=== PATIENT | male | born 1955 | race Caucasian/White ===

== ENCOUNTER → 2022-09-25 | Outpatient (CLI) | payer OTHER, SELFPAY ==
--- NOTE | 2022-09-25 12:45 | RAD_ITS ---
INDICATION: LEFT KNEE CATCHING -- STANDING EXAMINATION/TECHNIQUE: X-RAY - LEFT XR Knee Complete 4 Views or More 4 VIEWS COMPARISON: None. FINDINGS: SOFT TISSUES: No soft tissue swelling or gas. No radiopaque foreign body. BONES/JOINTS: No acute fracture. Mild tricompartmental degenerative changes. No sclerotic or destructive changes observed. RAD/Knee 4 or More Views IMPRESSION: Mild tricompartmental degenerative changes. Electronically Signed: Torito Sanches MD at 17:51 EST ,
--- NOTE | 2022-09-25 12:45 | RAD_ITS ---
STUDY: X-RAY CHEST REASON FOR EXAM: Male, 67 years old. Smoking history. TECHNIQUE: PA and lateral views of the chest. COMPARISON: February 12, 2013. FINDINGS: The lungs are clear and expanded. There is no demonstrated pleural abnormality. Normal size heart. Normal mediastinum and shelbie. Normal visualized pulmonary arteries. Normal visualized aortic arch and descending thoracic aorta. There are diffuse degenerative changes of the visualized thoracic spine. Normal visualized ribs, clavicles, and shoulders. There is no demonstrated abnormality of the visualized soft tissue structures of the upper abdomen. RAD/Chest PA and Lateral IMPRESSION: Degenerative changes, as described above. No demonstrated acute cardiopulmonary process. No major interval change. Electronically Signed: Wali Quinn DO at 17:30 EST ,
[2022-09-25 13:28] LABS: Absolute Lymphocyte Count 2.05 X10^3/uL (0.83-4.51); Absolute Neutrophil Count 9.1 X10^3/uL (2.0-7.7); Basophil# 0.03 X10^3/uL; Basophil% 0.2 % (0-1); Eosinophil# 0.14 X10^3/uL; Eosinophils% 1.1 % (0-5); Hematocrit 49.5 % (40-54); Hemoglobin 16.2 g/dL (13.0-16.5); Lymphocyte # 2.05 X10^3/ul (0.83-4.51); Lymphocyte % 16.8 % (19-41); Mean Corp Hgb Conc 32.7 g/dL (32-36); Mean Corpuscular Hgb 29.6 pg (27.0-32.0); Mean Corpuscular Volume 90.5 fL (80-94); Mean Platelet Vol. 9.2 fl (6.2-12.0); Monocyte# 0.86 X10^3/uL; Monocyte% 7.1 % (0-10); NRBC Flagged by Analyzer 0 % (0-5); Neutrophil # 9.08 X10^3/uL (2.7-7.7); Neutrophil % 74.6 % (47-70); Platelet Count 285 K/mm3 (150-450); RBC Distribution Width CV 13.3 % (11.6-14.6); RBC Distribution Width SD 43.8 fl (35.1-43.9); Red Blood Count 5.47 M/mm3 (4.6-6.2); White Blood Count 12.2 K/mm3 (4.4-11.0)
[2022-09-25 13:58] LABS: ALB/GLOB Ratio 0.9 RATIO (0.9-2.4); AST(SGOT) 18 U/L (15-37); Alanine Aminotransfer ALT/SGPT 24 U/L (16-61); Albumin, Serum 3.4 g/dL (3.2-5.0); Alkaline Phosphatase 93 U/L (45-117); Anion Gap 3 (5-15); BUN 14 mg/dL (7-18); Calcium,Total 8.7 mg/dL (8.5-10.1); Chloride 107 mmol/L (98-107); Cholesterol 180 mg/dL (200); Creatinine, Serum 1.08 mg/dL (0.70-1.30); EST Glomerular Filtration Rate 73 mL/min (>60); Est Glom Filt Rate - Afr Amer 88 mL/min (>60); Globulin 3.9 g/dL (2.2-4.2); Glucose 98 mg/dL (74-106); High Density Lipoprotein 56 mg/dL; PSA,Total - Annual Screen 0.73 ng/mL (0.00-4.00); Potassium 4.7 mmol/L (3.5-5.1); Protein, Total 7.3 g/dL (6.4-8.2); Sodium Level 140 mmol/L (136-145); Triglycerides 81 mg/dL; Very Low Density Lipoprotein 16 mg/dL (5-40)
== END | disposition home or self-care (01) ==
LOC: LAB 12:24
PROVIDERS: PCP Family Medicine; Referring Provider Family Medicine; Visit Provider Family Medicine
DX: Z00.00 Encounter for general adult medical examination without abnormal findings (principal); F17.200 Nicotine dependence, unspecified, uncomplicated; R06.00 Dyspnea, unspecified; Z12.5 Encounter for screening for malignant neoplasm of prostate; M25.562 Pain in left knee
CPT/HCPCS: 36415; 71046; 73564; 80053; 80061; 84153; 85025; G0103

== ENCOUNTER → 2024-03-20 | Outpatient (CLI) | payer OTHER, SELFPAY ==
--- NOTE | 2024-03-20 16:10 | CT_ITS ---
STUDY: CT ABDOMEN AND PELVIS WITHOUT CONTRAST REASON FOR EXAM: Male, 68 years old. ABDOMINAL PAIN RADIATION DOSAGE (If Supplied By Facility): CTDIvol = ( 7.13 ) mGy, DLP = ( 354.70 ) mGycm TECHNIQUE: Transaxial images were obtained from the dome of the diaphragm to the symphysis pubis without oral contrast, and without intravenous contrast. Sagittal and coronal images were reconstructed. Individualized dose optimization techniques were used for this CT. COMPARISON: None. FINDINGS: The visualized lung bases are unremarkable. Coronary artery calcification. There is a 6.7 mm cyst in the lateral aspect of the left lobe of the liver. Normal gallbladder and extrahepatic biliary system. Normal spleen. Normal pancreas. Normal bilateral adrenal glands. Normal right kidney. Normal left kidney. Normal visualized stomach. Normal small intestine. There are scattered colonic diverticula consistent with diverticulosis. The appendix is visualized and appears normal. There is scattered atherosclerotic calcification of the abdominal aorta, without a demonstrated aneurysm. Normal inferior vena cava. There is a small retroperitoneal lymphadenopathy with enlarged nodes no greater than 10mm in the short axis diameter. 2 tiny calculi are seen at the base of the bladder on the right side. This may represent recently passed calculus. Diffuse bladder wall thickening. Questionable polypoid lesion in the base of the bladder more prominent on the right side. A repeat examination following IV contrast recommended. There are prostatic calcifications. Small bilateral inguinal hernias containing fat. There are diffuse degenerative changes of the visualized lumbar spine. Grade 1 anterolisthesis of L4 on L5 most likely secondary to facet joint osteoarthritis. CT/Abdomen/Pelvis without Cont IMPRESSION: Diffuse urinary bladder wall thickening. Questionable polypoid lesion at the base of the bladder more prominent on the right side. 2 tiny calculi are seen at the base of the bladder on the right side suggests a recently passed calculus. Clinical correlation recommended. Sigmoid diverticulosis. Electronically Signed: Chico Blakely MD at 15:54 EDT ,
== END | disposition home or self-care (01) ==
LOC: CT 16:06
PROVIDERS: PCP Family Medicine; Referring Provider Family Medicine; Visit Provider Family Medicine
DX: R10.9 Unspecified abdominal pain (principal); R31.29 Other microscopic hematuria
CPT/HCPCS: 74176

== ENCOUNTER 2024-04-16 17:29 | Emergency (ER) | payer OTHER, SELFPAY ==
[2024-04-16 17:31] VITALS: BP 155/134; PULSE 90; RESP 18; TEMP 36.7; O2SAT 100; O2SAT 98; BMI 25.6
[2024-04-16 17:35] VITALS: O2SAT 96
--- NOTE | 2024-04-16 17:39 | CT_ITS ---
EXAM: CT HEAD WITHOUT INTRAVENOUS CONTRAST CLINICAL INDICATION: head trauma w/ loc TECHNIQUE: Multiple axial images were obtained of the head without intravenous contrast. This CT exam was performed using one or more of the following dose reduction techniques: automated exposure control, adjustment of the mA and/or kV according to patient size, and/or use of iterative reconstruction technique. RADIATION DOSE: CTDIvol = 44.99 mGy, DLP = 829.85 mGy-cm COMPARISON: 02/12/2013 FINDINGS: BRAIN AND EXTRA-AXIAL SPACES: Unremarkable. No intra- or extra-axial hemorrhage. No evidence of acute infarct. No intracranial mass or mass effect. There is preservation of the allan/white matter interface. Posterior fossa structures are unremarkable. Ventricles are appropriate for age. No hydrocephalus. Basal cisterns are patent. BONES/JOINTS: Unremarkable. No discrete lytic or blastic abnormalities. SINUSES: Sinus disease. MASTOID AIR CELLS: Unremarkable. Clear. ORBITS: Visualized globes, extraocular muscles, optic nerves and retrobulbar fat appear unremarkable. CT/Brain/Head without Contrast IMPRESSION: No acute findings in the head/brain. Electronically Signed: Arvind Davis MD at 18:53 EDT ,
--- NOTE | 2024-04-16 17:40 | EKG12_ITS ---
Test Reason : SYNCOPE Blood Pressure : / mmHG Vent. Rate : 095 BPM Atrial Rate : 095 BPM P-R Int : 134 ms QRS Dur : 080 ms QT Int : 366 ms P-R-T Axes : 074 083 046 degrees QTc Int : 459 ms Normal sinus rhythm Nonspecific ST abnormality Abnormal ECG Confirmed by TOM SHERMAN, ELVIA ([id number]), department editor ANGELITO MAY ([id number]) on 04/21/2024 6:49:53 AM Referred By: MARCELLUS/MOUNA Confirmed By:TATYANA SANTOS MD
--- NOTE | 2024-04-16 17:43 | EX.ED.DYSGE1 ---
HPI History of Present Illness Chief Complaint: Allergic Reaction Informant: patient and spouse/S.O. Onset/Context/Timing Onset: Today Context: Sudden Onset Timing: Continuous Current Severity: Moderate Maximum Severity: Severe Narrative Narrative: 68-year-old male. Was cutting his grass when he was attacked by multiple bees and multiple bee stings on both legs. Developed anaphylactic reaction had a syncopal episode he fell back hit his head on his garage floor. When he came to he was feeling somewhat better sat back up and then passed out again and fell back in his head. 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 He is currently on no medications. He was brought in by squad he was treated with IV Solu-Medrol, EpiPen and IV Benadryl. He is feeling much better. Prior to the bee sting incident he was feeling fine. He has had no recent illness. No cardiac history. Prior similar symptoms: No Recent Illness/Hospitalization: No PFSH PFSH Medical History Wears dentures Cancer Bladder disease Heartburn Former smoker Home Medications ?Medication ?Instructions ?Recorded ?Last Taken ?Type aspirin 81 mg tablet,delayed 81 mg PO DAILY 04/14/24 04/11/24 History release (Adult Aspirin Regimen) epinephrine 0.3 mg/0.3 mL 0.3 mg (0.3 mL) IM Q4H PRN 04/16/24 Unknown Rx injection, auto-injector (EpiPen anaphylaxis #2 ea 2-Boubacar) Allergy/AdvReac Type Severity Reaction Status Date / Time bee venom protein (honey Allergy Anaphylaxis Verified 04/16/24 17:39 bee) (bee sting) Surgical History History of colonoscopy History of removal of skin mole History of mandibular surgery Social History Smoking Status: Former smoker ROS ROS ED ROS Narrative Denies recent illness. Constitutional Constitutional ED: Denies fever(s) Eyes Eyes: Denies blurry vision ENT ENT ED: Denies ear pain Cardiovascular Cardiovascular: Denies chest pain Respiratory/Chest Respiratory/Chest: Denies cough or dyspnea Gastrointestinal Gastrointestinal: Denies abdominal pain, constipation, diarrhea, melena, nausea or vomiting Genitourinary Genitourinary ED: Denies dysuria or hematuria Musculoskeletal Musculoskeletal: Denies arthralgias Integumentary Denies abscess Neurologic Neurologic: Denies headache(s) Psychiatric Psychiatric: Denies anxiety or depression Endocrine Endocrinology: Denies cold intolerance Hematologic/Lymphatic Hematologic/Lymphatic: Reports none Allergic/Immunologic Allergic/Immunologic ED: Denies mouth swelling, tongue swelling or urticaria EXAM Physical Exam Narrative Exam Narrative: 68-year-old male initial blood pressure 155/134 and most likely from the epinephrine. Pulse ox 90% on room air no hypoxia. Afebrile. He does not look septic or toxic. He is diaphoretic. H EENT exam pupils round react light. Extra motions are intact. No facial trauma. He hit his head twice saddles any hematoma or laceration is nontender. Neck nontender. Trachea midline. Back spine nontender. No signs of trauma. Lungs clear to auscultation bilaterally. Heart regular rhythm rate about 90 no murmur. Chest wall and ribs nontender. Abdomen soft nontender. He is moving all 4 extremities. 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 Normal range of motion. Currently there is no hives or allergic reaction on his legs. But he is already been given epinephrine, Benad[facility] He is awake and alert. He is answering questions and following commands. Const Vital Signs: 04/16/24 17:31 04/16/24 17:35 04/16/24 18:31 Temperature 98.0 F Temperature Source Oral Pulse Rate 90 101 H Respiratory Rate 18 20 H Respiratory Effort Normal Respiratory Depth Normal Respiratory Pattern Normal Blood Pressure 155/134 H 137/66 H Blood Pressure Mean 141 89 Pulse Ox 98 96 97 Oxygen Delivery Method Room Air Room Air Room Air Positive well nourished and well developed; Negative for obese, cachectic, contractures or unkempt General Appearance ED: well developed; Negative for unkempt, cachectic, contractures, cyanotic, diaphoretic or pallor Nutritional Appearance: Negative for cachectic or obese HEENT Reports moist mucous membranes trauma; Negative for tenderness Eyes PERRL and EOMs intact bilaterally General Eye ED: Negative for pale conjunctiva or scleral icterus Neck no lymphadenopathy, supple and no JVD General: Negative for tenderness or other Lymph Lymphatic: Negative for other Chest Wall inspection of chest normal and palpation of chest normal Resp normal respiratory effort and clear to auscultation bilaterally Effort and Inspection: Negative for retractions or pain with movement Auscultation: Negative for rales, rhonchi, wheezes or diminished lung sounds Cardio regular rate, regular rhythm, S1 normal heart sound, S2 normal heart sound and no murmurs Palpation: Negative for palpable S3 or palpable S4 Rate: Negative for bradycardia, tachycardic or other Rhythm: Negative for abnormal rhythm GI normal to inspection, nondistended, normoactive bowel sounds, non-tender, non-distended and no masses Inspection: Negative for abdominal distention Auscultation: normoactive bowel sounds Palpation: soft; Negative for tender or guarding Back/Spine no CVA tenderness General Back: Negative for CVA tenderness Cervical Spine: Negative for cervical spine tenderness Thoracic Spine / Upper Back: Negative for thoracic spinal tenderness or paraspinal muscle tenderness Lumbar Spine / Lower Back: Negative for lumbar spinal tenderness Extremity normal to inspection General Extremety ED: Negative for edema or tenderness General Extremity: Negative for edema Neuro oriented x3 and CN's II-XII intact bilaterally Sensorium / Orientation: alert; Negative for orientation impaired, lethargic or stuporous Motor Exam: strength 5/5 throughout Psych mental status grossly normal Appearance: Negative for unkempt Attitude: No agitated Mood & Affect: Negative for depressed, anxious or tearful Skin no rashes or lesions noted, no wounds and skin turgor normal General Skin Exam: Negative for jaundice or pallor Lesions: No lesion noted Rashes: No rashes noted Wounds: Negative for wounds noted MDM MDM MDM Narrative Medical decision making narrative: 68-year-old male anaphylactic reaction to multiple bee stings. Pretreated by squad prior to arrival with EpiPen, Solu-Medrol and Benadryl IV. He is much improved. He did have head injury when he passed out out of the hypotension anaphylaxis so I will be obtain a CAT scan of his head. We did get an EKG because of syncope Meding is all secondary to anaphylaxis. I do not believe he needs any lab work he is had no recent illness. Repeat exam patient is doing well at 7:20 PM. Nurses getting him ambulating loculating difficulty. CAT scan of his brain was unremarkable. He will be discharged to home. With an EpiPen. History & Record Review Discussion w/independent historian: Patient and Family Lab Data Attestation: I reviewed the patient's lab results. Lab results narrative: BGT 123. Labs: Laboratory Results - last 24 hr 04/16/24 17:34 POC Glucose 123 H Radiography Diagnostic Testing: Clinical Impression(s) from Imaging Studies Brain CT 04/16/24 17:39 IMPRESSION: No acute findings in the head/brain. Electronically Signed: Arvind Davis MD at 18:53 EDT Reading Location ID and State: [facility] / [place] , Service support , Rhythm Strip Rhythm Strip: Sinus Rhythm Rate: 95 Ectopy: None EKG Initial EKG: Attestation: I personally reviewed and interpreted this EKG as follows: Interpretation: Sinus Rhythm and No Acute Injury Pattern Comments: Normal sinus rhythm rate of 95 no signs of NC or ischemia. No dysrhythmia. Discharge Plan Triage Chief Complaint: Allergic Reaction Other Complaint: Head Injury ED Provider: Serafin Bowen Dx/Rx/DC Orders Clinical Impression: Anaphylactic reaction, Allergy to bee sting, Head injury Instructions: ED Anaphylaxis, ED Head Injury (Adult) Prescriptions: New epinephrine [EpiPen 2-Boubacar] 0.3 mg/0.3 mL auto-injector 0.3 mg IM Q4H PRN (Reason: anaphylaxis) Qty: 2 0RF Rx Instructions: If you ever have a severe allergic reaction again. No Action aspirin [Adult Aspirin Regimen] 81 mg tablet,delayed release (DR/EC) 81 mg PO DAILY Primary Care Provider: Rohan Amezcua Referrals: Rohan Amezcua DO [Primary Care Provider] - As Needed Activity Restrictions/Additional Instructions: Severe allergic reaction, anaphylaxis, to bee sting. If you were to have a similar type of reaction in the future you need to have an EpiPen at your home and in your car at all times. Closed head injury. Print Language: Italian Disposition Disposition: Home, Self Care
[2024-04-16 17:51] LABS: Bedside Glucose 123 mg/dL (74-106)
[2024-04-16 18:31] VITALS: BP 137/66; PULSE 101; RESP 20; O2SAT 97
[2024-04-16 19:00] VITALS: BP 135/61; O2SAT 98
[2024-04-16 19:34] VITALS: BP 135/61; PULSE 102; RESP 21; TEMP 36.6; O2SAT 98
== END 2024-04-16 19:35 | disposition home or self-care (01) ==
PROVIDERS: Emergency Provider Emergency Medicine; PCP Family Medicine; Visit Provider Emergency Medicine
DX: S09.90XA Unspecified injury of head, initial encounter (principal); T78.2XXA Anaphylactic shock, unspecified, initial encounter; Z87.891 Personal history of nicotine dependence; T63.441A Toxic effect of venom of bees, accidental (unintentional), initial encounter
CPT/HCPCS: 70450; 82962; 93005; 99285

== ENCOUNTER 2024-05-12 09:13 | Day surgery (SDC) | payer OTHER, SELFPAY ==
[2024-05-12] VITALS (8 sets, daily range): BP systolic 145–169; BP diastolic 75–112; PULSE 77–85; RESP 16; TEMP 36.1–36.6; O2SAT 81–99; BMI 26.1
--- NOTE | 2024-05-12 09:33 | EKG12_ITS ---
Test Reason : PRE OP Blood Pressure : / mmHG Vent. Rate : 070 BPM Atrial Rate : 070 BPM P-R Int : 154 ms QRS Dur : 084 ms QT Int : 356 ms P-R-T Axes : 067 072 012 degrees QTc Int : 384 ms Normal sinus rhythm Normal ECG Confirmed by Ilya Ramirez ([id number]), pictures editor GRETTA BLACKMON ([id number]) on 05/15/2024 10:52:44 AM Referred By: Gordo Roe Confirmed By:Ilya Ramirez
--- NOTE | 2024-05-12 09:38 | PRE.ANES_ITS ---
ASA Classification* ASA Classification ASA Classification: 2 Assessment & Plan Anesthesia* Anesthesia Assessment Anesthesia Assessment: Discussed sedation and/or anesthesia options, risks, benefits, and alternatives with patient/parents/legal guardian/POA. Questions invited. The patient/parents/legal guardian/POA seems to understand and agrees to proceed with anesthesia plan. Reviewed the physical assessment, medical history, allergy history and patient home medications list prior to surgery/procedure/anesthetic and documented any changes. Performed airway and anesthesia risk assessments. Anesthesia Type Anesthesia Type: General Anesthesia Focused Assessment* Airway Assessment Mouth opens: >3 cm Mallampati Score: II Focused Labs Anesthesia Preop lab: CBC WBC 12.2 K/mm3 (4.4-11.0) H 09/25/22 12:28 RBC 5.47 M/mm3 (4.6-6.2) 09/25/22 12:28 Hgb 16.2 g/dL (13.0-16.5) 09/25/22 12:28 Hct 49.5 % (40-54) 09/25/22 12:28 Plt Count 285 K/mm3 (150-450) 09/25/22 12:28 CHEMISTRY Potassium 4.7 mmol/L (3.5-5.1) 09/25/22 12:28 Sodium 140 mmol/L (136-145) 09/25/22 12:28 BUN 14 mg/dL (7-18) 09/25/22 12:28 Creatinine 1.08 mg/dL (0.70-1.30) 09/25/22 12:28 Glucose 98 mg/dL (74-106) 09/25/22 12:28 POC Glucose 123 mg/dL (74-106) H 04/16/24 17:34 COAG Pre-Assessment Diagnosis/Proposed Procedure Planned Operative Procedure(s): Cysto,Transurethal Resec Bladder,[employer] Anesthesia History 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 When Was Last Pacemaker Check QUESTION #4 FULL TEXT: You/Your Family Experience fever (hyperthermia) with Anesthesia Last Oral Intake Last Oral intake: Last Oral Intake NPO since Meds taken in AM with sips of water? 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 Female No 04/14/24 10:54 HX of Motion Sickness No 04/14/24 10:54 HX of N/V After Surgery No 04/14/24 10:54 Non-Smoker Yes 04/14/24 10:54 Duration of Surgery greater Yes 04/14/24 10:54 than 60 minutes Number of Risk Factors 2 04/14/24 10:54 PONV Score Moderate Risk 04/14/24 10:54 Height & Weight Height & Weight: Anesthesia: Height & Weight Height 5 ft 8 in 05/11/24 09:33 Weight: 74.843 kg 05/11/24 09:33 Respiratory Assessment Respiratory Assessment - roll grinder operator: Respiratory Tract Infection Hx - roll grinder operator Hx Respiratory Tract Infection No 04/14/24 10:54 STOP Sleep Apnea STOP Sleep Apnea - roll grinder operator: STOP Sleep Apnea - roll grinder operator Hx Hypertension No 04/14/24 10:54 Hx Sleep Apnea No 04/14/24 10:54 CPAP BIPAP Do you snore loudly (louder Yes 04/14/24 10:54 than talking or can be heard Do you often feel tired/ No 04/14/24 10:54 fatigued/ sleepy during daytime? Has anyone observed you stop No 04/14/24 10:54 breathing during sleep? STOP Results Negative 04/14/24 10:54 QUESTION #5 FULL TEXT : Do you snore loudly (louder than talking or can be heard through closed doors)? 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 Specify any problems Hx of Preganancy in last 3 N/A 04/14/24 10:54 Months Nurse Filling Out Transfusion NBUCHER 04/14/24 10:54 & Questions: Date: 04/14/24 04/14/24 10:54 Time: 10:55 04/14/24 10:54 Patient unable to answer at this time (ie. confused, unrespo /Reproduction History /Reproductive History - roll grinder operator: /Reproductive Hx- roll grinder operator Hx Now No 04/14/24 10:54 Gestational Age (in weeks): EDC: Hx Hx Para Hx Section SAB No 04/14/24 10:54 Active Medications Active Medications: Current Medications Generic Name Dose Route Start Last Admin Trade Name Freq PRN Reason Stop Dose Admin Cefazolin Sodium 2 gm/ Sodium 110 mls @ 150 mls/hr 05/12/24 12:50 Chloride IV 05/12/24 13:33 PREOP ONE Lactated Ringer's 1,000 mls @ 15 mls/hr 05/12/24 09:30 IV .Q48H JO PFSH Medical History Wears dentures Cancer Bladder disease Heartburn Former smoker Home Medications ?Medication ?Instructions ?Recorded ?Last Taken ?Type aspirin 81 mg tablet,delayed 81 mg PO DAILY 04/14/24 04/11/24 History release (Adult Aspirin Regimen) epinephrine 0.3 mg/0.3 mL 0.3 mg (0.3 mL) IM Q4H PRN 04/16/24 Unknown Rx injection, auto-injector (EpiPen anaphylaxis #2 ea 2-Boubacar) Allergy/AdvReac Type Severity Reaction Status Date / Time bee venom protein (honey Allergy Anaphylaxis Verified 05/12/24 09:32 bee) (bee sting) Surgical History History of colonoscopy History of removal of skin mole History of mandibular surgery Social History Smoking Status: Former smoker Review of Systems (Anesthesia) ROS Narrative System reviewed and no additional complaints, except as documented.
[2024-05-12] MEDS: Lactated Ringers 1,000 ML 15 ML IV (09:52)
--- NOTE | 2024-05-12 09:56 | PCM.HP.STD ---
HPI - General General Date of Service: 05/12/24 Chief Complaint: Bladder tumor HPI Narrative JEREMY ADAM, is a 68 M who presents for transurethral resection of a bladder tumor PFSH Medical History Wears dentures Cancer Bladder disease Heartburn Former smoker Home Medications ?Medication ?Instructions ?Recorded ?Last Taken ?Type aspirin 81 mg tablet,delayed 81 mg PO DAILY 04/14/24 04/11/24 History release (Adult Aspirin Regimen) epinephrine 0.3 mg/0.3 mL 0.3 mg (0.3 mL) IM Q4H PRN 04/16/24 Unknown Rx injection, auto-injector (EpiPen anaphylaxis #2 ea 2-Boubacar) Allergy/AdvReac Type Severity Reaction Status Date / Time bee venom protein (honey Allergy Anaphylaxis Verified 05/12/24 09:32 bee) (bee sting) Surgical History History of colonoscopy History of removal of skin mole History of mandibular surgery Social History Smoking Status: Former smoker Vital Signs Vital Signs Vital Signs: 05/12/24 09:33 05/12/24 09:33 Temperature 97.8 F Temperature Source Temporal Pulse Rate 77 Respiratory Rate 16 Respiratory Pattern Normal Blood Pressure 158/75 H Blood Pressure Mean 102 Blood Pressure Source Monitor Blood Pressure Position Semi-Fowlers Blood Pressure Location Left Arm Pulse Ox 99 Oxygen Delivery Method Room Air Weight Weight: 75.6 kg Body Mass Index (BMI) 26.1
--- NOTE | 2024-05-12 09:56 | PCM.DC ---
Discharge Instructions Diet Discharge Diet: No restrictions Activity Discharge Activity: Return to Normal Activity and May Not Drive (while taking narcotic pain medications.) Dressing / Incision Call your doctor if you observe: Fever of 101 or Higher Follow Up Care Please Follow Up With: Gordo Roe MD When: Call [phone] for an appointment Test Results: Test results from this visit will be discussed in further detail at your follow-up appointment, if applicable. Discharge Plan Admission Primary Reason for Your Visit: bladder tumor Attending Provider: Gordo Roe Primary Care Provider: Rohan Amezcua Instructions Patient Instructions: Transurethral Bladder Tumor Dc Print Language: Tristanian Discharge Orders/Prescriptions Prescriptions: Continued aspirin [Adult Aspirin Regimen] 81 mg tablet,delayed release (DR/EC) 81 mg PO DAILY epinephrine [EpiPen 2-Boubacar] 0.3 mg/0.3 mL auto-injector 0.3 mg IM Q4H PRN (Reason: anaphylaxis) Qty: 2 0RF Rx Instructions: If you ever have a severe allergic reaction again. Referrals / Follow Up: Gordo Roe MD [Med Staff - Active Staff] - Rohan Amezcua DO [Primary Care Provider] - Disposition Disposition (needs filled in before D/C Order can be placed): Home, Self Care
[2024-05-12] MEDS: Cefazolin 2 GM in 0.9% Normal Saline (100mL Bag) 100 ML IV (10:59)
--- NOTE | 2024-05-12 11:10 | BLB_PTH ---
PATIENT: JEREMY ADAM Jr. [place] [facility] [id number] AGE/SX: 68/M ROOM: RE05/12/[address]: Dr. Gordo Roe MD : [id number] BED: DIS: 05/12/2024 SPEC #: [id number] RECD: 05/12/24 11:52 STATUS: JACQUELINE ERWIN #: [id number] HECTOR: 05/12/24 11:[address]: Gordo Roe DEPT: SURGICAL PATHOLOGY RECD BY: January Roger ENTERED: 05/12/24 13:09 SP TYPE: TURB OTHR DR: Dr. Rohan Amezcua, DO Tissues: Urinary bladder, NOS Procedures: Surgery Specimen Level V HEADER OPERATION: Transurethral resection bladder PRE-OP DIAGNOSIS: Bladder tumor TISSUE SUBMITTED: Bladder tumor MICROSCOPIC DIAGNOSIS Urinary bladder tumor, transurethral resection: Papillary urothelial carcinoma. See cancer template below. AM.mr 05/15/2024 COMMENT BLADDER CANCER (TUR) SUMMARY Procedure: Transurethral resection of bladder tumor (TURBT) Tumor site: Not specified Histologic type: Papillary urothelial carcinoma Associated epithelial lesions: None identified Histologic grade: 2-3/3 (WHO high grade) Tumor configuration: Papillary Muscularis propria presence: Not present in specimen Lymph vascular invasion: Not identified Tumor extension: Tumor extends into the lamina propria (subepithelial connective tissue). Additional pathologic findings: None PATHOLOGIC STAGE: T1 Nx Mx The above summary is in compliance with [employer] [place] [employer] (CAP) Cancer Protocols Checklist and [place] Joint Committee on Cancer (AJCC), Staging Manual, 8th Ed. Case has been reviewed in consultation with Dr. Saldaña who concurs with the above diagnosis. IDC:[id number] MICROSCOPIC DESCRIPTION Slides are reviewed. GROSS DESCRIPTION Received in fixative is one container labeled with the patient's name and designated Bladder tumor. The specimen consists of multiple irregular fragments of alcala-brown soft tissue that in aggregate measure 2.5 x 2.0 x 0.2 cm. The specimen is totally submitted in one cassette. 05/12/2024 TC:0 CPT:70875
--- NOTE | 2024-05-12 11:36 | OP.PCM_ITS ---
Report of Operation Date of Procedure: 05/12/24 Pre-Operative Diagnosis: Bladder tumors multiple in size, measuring 2 x 3 cm, by 2 x 4 cm flat lesions multiple Post-Operative Diagnosis: The same Surgery/Procedure Performed:: Transurethral section of multiple bladder tumors Description of Surgical Findings:: Patient presented to the hospital for treatment of a tumor that was found in the bladder with a very large bladder tumor. Patient understands is possible it may not be able to resect the entire tumor. Patient also understands is possible that the patient may need multiple procedures or more invasive procedures to cure him of this cancer. Findings: Tumor that was involved in the trigone of the bladder, right or ureteral orifice was involved, this was resected completely right lateral wall posterior wall and also on the right lateral wall extensive amount of disease multifocal tumor probably would benefit from BCG therapy Patient was taken back to the operating room after smooth induction of anesthesia the patient was placed supine on the table. The patient was placed in dorsolithotomy position. The urethra and genitals prepped and draped in usual sterile fashion. I went into the bladder with a 30 degree lens and a cystoscope was performed and identified the tumor the tumors which was about 2 x 3 centimeters in size and occupying mostly the trigone, right lateral wall, posterior wall, and right wall of the bladder. I then switched over to the 70 degree lens and inspected the rest of the bladder with a 70 degree lens to make sure there is no other tumors in the bladder and to identify all the tumor l ocations. The right and left ureteral orifice were identified. The tumor was involved in the right ureteral orifice. I was able to resect tumor off orfice. I then placed the Olympus bipolar resectoscope with a large loop into the bladder. I then started resected the tumor and started superficially shaving small little pieces working my way to the base of the tumor. As I went along I then cauterize any bleeders that were encountered during the resection. The tumor pieces were then flushed out of the bladder and continued resecting the tumor until finally I got down to the base of the tumor and the muscle of the bladder was then identified a small little bit of muscle was taken with the resection. The Ellik was used then to evacuate all the tumor pieces out of the bladder. I then cauterized extensively the tumor base and also circumferentially around where the tumor was. Again we made sure to evacuate all the pieces out the bladder. I made sure there was no more bleeding from the base of the bladder and then over the tumor pieces were then evacuated out and sent off as a specimen. We then drained bladder and the patient was taken back to the PACU in stable condition. Surgeon: Gordo Roe Type of Anesthesia: General Drains: none Estimated Blood Loss (mL): 0 Admit VTE Documentation VTE Present on Admission: No VTE Mechan Device Prophylaxis: SCD's VTE Pharm Prophylaxis ordered?: No
[2024-05-12] MEDS: Ketorolac 15 MG/ML Vial IV (11:57)
--- NOTE | 2024-05-12 15:58 | PCM.POST.ANE ---
Anesthesia: Postop Eval I Current Vital Signs Temperature: 97.0 F Pulse Rate: 77 Blood Pressure: 157/87 Respiratory Rate: 16 Pulse Ox: 98 Oxygen Delivery Method: Room Air Assessment Airway patent: Yes Spontaneous unlabored respirations: Yes Mental status: Awake and Calm nausea: No Vomiting: No Anesthesia Complication: No Fluid Hydration Crystalloid volume administer (ml): 800 Total IV fluid infused: 800 Progress Note Anesthesia document: Postop Eval 1 completed: Yes
--- NOTE | 2024-05-12 16:25 | POSTOPAN2_ITS ---
Anesthesia Postop Eval I Sum Postop Eval Completion status Anesthesia document: Postop Eval 1 completed: Yes Anesthesia Postop Eval I Summary Anesthesia Postop Eval I Summary: Anesthesia Postop Eval I: Assessment Summary Airway patent Yes 05/12/24 15:59 [email or web address] Spontaneous unlabored Yes 05/12/24 15:59 [email or web address] respirations Mental status Awake,Calm 05/12/24 15:59 [email or web address] nausea No 05/12/24 15:59 [email or web address] Vomiting No 05/12/24 15:59 [email or web address] Anesthesia Postop Eval I: Fluid Summary Crystalloid volume administer 800 05/12/24 15:59 [email or web address] (ml) Colloids volume administered ( ml) Blood Product volume administered (ml) Total IV fluid infused 800 05/12/24 15:59 [email or web address] Anesthesia Postop Eval I: Summary Notes Anesthesia Complication No 05/12/24 15:59 [email or web address] Anesthesia Complication Comment: Post-operative progress note Anesthesia: Postop Eval II Evaluation Mental status: Awake Pain Level: 0 nausea: No Vomiting: No
--- NOTE | 2024-05-12 16:25 | PCM.POSTANE2 ---
Anesthesia Postop Eval I Sum Postop Eval Completion status Anesthesia document: Postop Eval 1 completed: Yes Anesthesia Postop Eval I Summary Anesthesia Postop Eval I Summary: Anesthesia Postop Eval I: Assessment Summary Airway patent Yes 05/12/24 15:59 [email or web address] Spontaneous unlabored Yes 05/12/24 15:59 POLYSOMNOGRAPHIC [email or web address] respirations Mental status Awake,Calm 05/12/24 15:59 POLYSOMNOGRAPHIC [email or web address] nausea No 05/12/24 15:59 POLYSOMNOGRAPHIC [email or web address] Vomiting No 05/12/24 15:59 POLYSOMNOGRAPHIC [email or web address] Anesthesia Postop Eval I: Fluid Summary Crystalloid volume administer 800 05/12/24 15:59 POLYSOMNOGRAPHIC [email or web address] (ml) Colloids volume administered ( ml) Blood Product volume administered (ml) Total IV fluid infused 800 05/12/24 15:59 POLYSOMNOGRAPHIC [email or web address] Anesthesia Postop Eval I: Summary Notes Anesthesia Complication No 05/12/24 15:59 POLYSOMNOGRAPHIC [email or web address] Anesthesia Complication Comment: Post-operative progress note Anesthesia: Postop Eval II Evaluation Mental status: Awake Pain Level: 0 nausea: No Vomiting: No
== END 2024-05-12 13:05 | disposition home or self-care (01) ==
LOC: SDC 09:13 → AC 09:14
PROVIDERS: PCP Family Medicine; Referring Provider Urology; Visit Provider Urology
PROC: 0TBB8ZZ Excision of Bladder, Via Natural or Artificial Opening Endoscopic (ICD-10-PCS; CPT 52234; principal; 2024-05-12 11:00)
DX: C67.0 Malignant neoplasm of trigone of bladder (principal); C67.2 Malignant neoplasm of lateral wall of bladder; C67.4 Malignant neoplasm of posterior wall of bladder; Z79.82 Long term (current) use of aspirin; Z87.891 Personal history of nicotine dependence
CPT/HCPCS: 52234; 88307; 93005; J7120; J2405

== ENCOUNTER 2024-07-05 16:34 | Inpatient (IN) | payer OTHER, MEDICARE, SELFPAY ==
[2024-07-05] VITALS (8 sets, daily range): BP systolic 119–168; BP diastolic 61–89; PULSE 98–114; RESP 15–20; TEMP 37.5–39.4; O2SAT 96–99; BMI 25.9; BMI 25.7
[2024-07-05 16:59] LABS: Red Blood Cells-Urine 0 SEEN /hpf (0-5); Squamous Epithelial Cells - UA 0 SEEN /hpf (0-5)
[2024-07-05 17:10] LABS: Color, Urine Yellow (Yellow); Glucose, Dipstick Normal (Normal); Ketone-Dipstick 50 mg/dl (Negative); Leukocyte Esterase-Dipstick 500 /ul (Negative); Nitrite-Dipstick Negative (Negative); Occult Blood-Urine 150 /ul (Negative); Protein-Dipstick 30 mg/dl (Negative); Urine Bilirubin Dipstick Negative (Negative); Urine Clarity Sl. Cloudy (Clear); Urine Urobilinogen 1 mg/dl (Normal)
[2024-07-05 17:27] LABS: Bacteria 3+ /hpf (None Seen); Fine Granular Cast- Urine 0-5 SEEN /lpf (0-5); Mucous, Urine 2+ /hpf (<or=2+); White Blood Cells >100 SEEN /hpf (0-5)
[2024-07-05 17:45] LABS: Absolute Lymphocyte Count 0.45 X10^3/uL (0.83-4.51); Absolute Neutrophil Count 12.2 X10^3/uL (2.0-7.7); Basophil# 0.04 X10^3/uL; Basophil% 0.3 % (0-1); Hematocrit 49.7 % (40-54); Hemoglobin 16.8 g/dL (13.0-16.5); Lymphocyte # 0.45 X10^3/ul (0.83-4.51); Lymphocyte % 3.4 % (19-41); Mean Corp Hgb Conc 33.8 g/dL (32-36); Mean Corpuscular Hgb 29.9 pg (27.0-32.0); Mean Corpuscular Volume 88.6 fL (80-94); Mean Platelet Vol. 9.2 fl (6.2-12.0); Monocyte# 0.57 X10^3/uL; Monocyte% 4.3 % (0-10); NRBC Flagged by Analyzer 0 % (0-5); Neutrophil # 12.15 X10^3/uL (2.7-7.7); Neutrophil % 91.6 % (47-70); POSITIVE DIFFERENTIAL YES; Platelet Count 204 K/mm3 (150-450); RBC Distribution Width CV 12.9 % (11.6-14.6); RBC Distribution Width SD 42.1 fl (35.1-43.9); Red Blood Count 5.61 M/mm3 (4.6-6.2); White Blood Count 13.3 K/mm3 (4.4-11.0)
[2024-07-05 17:59] LABS: ALB/GLOB Ratio 0.7 RATIO (0.9-2.4); AST(SGOT) 50 U/L (15-37); Alanine Aminotransfer ALT/SGPT 33 U/L (16-61); Albumin, Serum 3.1 g/dL (3.2-5.0); Alkaline Phosphatase 85 U/L (45-117); Anion Gap 7 (5-15); BUN 28 mg/dL (7-18); BUN/Creat Ratio 22.2 RATIO (10-20); Calcium,Total 8.9 mg/dL (8.5-10.1); Chloride 101 mmol/L (98-107); Creatinine, Serum 1.26 mg/dL (0.70-1.30); EST Glomerular Filtration Rate 61 mL/min (>60); Est Glom Filt Rate - Afr Amer 73 mL/min (>60); Estimated Creatinine Clearance 53.19 ml/min; Globulin 4.2 g/dL (2.2-4.2); Glucose 115 mg/dL (74-106); Potassium 4.5 mmol/L (3.5-5.1); Protein, Total 7.3 g/dL (6.4-8.2); Sodium Level 132 mmol/L (136-145)
--- NOTE | 2024-07-05 19:42 | CT_ITS ---
STUDY: CT ABDOMEN AND PELVIS WITHOUT CONTRAST REASON FOR EXAM: Male, 68 years old. Pain RADIATION DOSAGE (If Supplied By Facility): CTDIvol = ( 6.41 ) mGy, DLP = ( 328.35 ) mGycm TECHNIQUE: Transaxial images were obtained from the dome of the diaphragm to the symphysis pubis without oral contrast, and without intravenous contrast. Sagittal and coronal images were reconstructed. Individualized dose optimization techniques were used for this CT. COMPARISON: March 20, 2024. FINDINGS: The visualized lung bases are unremarkable. The visualized portions of the heart are within normal limits. Normal liver. Normal gallbladder and extrahepatic biliary system. Normal spleen. Normal pancreas. Normal bilateral adrenal glands. There is no evidence for gross renal obstruction however there is stranding in perinephric fat secondary to tiny nonobstructing calculus in the distal right ureter proximal to the ureterovesical junction measuring 2 to 3 mm in size. Normal left kidney. Normal visualized stomach. Mild nonspecific ileus The appendix is visualized and appears normal. Atherosclerotic change of the aorta without evidence for aneurysm Normal inferior vena cava. Normal retroperitoneum. Normal urinary bladder. Mild nonspecific enlargement of the prostate Normal abdominal wall. Lumbar spine demonstrates degenerative change. Grade 1 spondylolisthesis at L4-5 CT/Abdomen/Pelvis without Cont IMPRESSION: Mild right perinephric stranding secondary to tiny nonobstructing calculus in the distal right ureter Electronically Signed: Timbo Lopez MD at 20:52 EST ,
--- NOTE | 2024-07-05 19:43 | EDS_ITS ---
HPI History of Present Illness Chief Complaint: Complaint Informant: patient Onset/Context/Timing Onset: Days (3) Context: Gradual Onset Timing: Continuous Quality: Burning Location: Suprapubic Worsened by: Nothing Relieved by: Nothing Narrative Narrative: Patient presents with dysuria and fever that has been getting worse over the past 3 days. Patient had recent resection of bladder cancer by Dr. Roe. Patient states he had some hematuria initially after the surgery. Patient states this has cleared. Patient admits to some dysuria. Patient states his fever has been up to 103.5. Patient been taking Tylenol and ibuprofen at home with no improvement. Patient admits to some nausea and vomiting. Patient also admits to some general myalgias. Patient states that he contacted Dr. Roe and stated he was initially going to call in an antibiotic but then called back and told him to come to the emergency department for evaluation. PFSH PFS Medical History Wears dentures Cancer Bladder disease Heartburn Former smoker Home Medications ?Medication ?Instructions ?Recorded ?Last Taken ?Type epinephrine 0.3 mg/0.3 mL 0.3 mg (0.3 mL) IM Q4H PRN 04/16/24 Unknown Rx injection, auto-injector (EpiPen anaphylaxis #2 ea 2-Boubacar) oxybutynin chloride 10 mg 10 mg PO DAILY 07/05/24 Unknown History tablet,extended release 24 hr tamsulosin 0.4 mg capsule 0.4 mg PO DAILY 07/05/24 Unknown History Allergy/AdvReac Type Severity Reaction Status Date / Time bee venom protein (honey Allergy Anaphylaxis Verified 07/05/24 16:37 bee) (bee sting) Surgical History (Updated 07/05/24 @ 20:[address] Noah Montiel DO) Hx of cystoscopy History of colonoscopy History of removal of skin mole History of mandibular surgery Social History Smoking Status: Former smoker ROS ROS ED Constitutional Constitutional ED: Reports fever(s); Denies chills Eyes Eyes: Denies blurry vision or change in vision ENT ENT ED: Denies rhinorrhea or sore throat Cardiovascular Cardiovascular: Reports chest pain; Denies palpitations Respiratory/Chest Respiratory/Chest: Denies cough or dyspnea Gastrointestinal Gastrointestinal: Reports nausea and vomiting Genitourinary Genitourinary ED: Reports dysuria; Denies hematuria Musculoskeletal Musculoskeletal: Reports myalgias Integumentary Denies abscess or rash Neurologic Neurologic: Reports headache(s); Denies weakness Allergic/Immunologic Allergic/Immunologic ED: Denies mouth swelling or urticaria EXAM Physical Exam Const Vital Signs: 07/05/24 16:35 07/05/24 19:00 07/05/24 20:00 Temperature 99.8 F H 100.7 F H 102.6 F H Temperature Source Oral Oral Oral Pulse Rate 114 H 109 H 106 H Respiratory Rate 18 15 20 H Blood Pressure 119/69 162/89 H 160/61 H Blood Pressure Mean 85 113 94 Pulse Ox 98 Oxygen Delivery Method Room Air Room Air Room Air 07/05/24 21:00 07/05/24 22:00 Temperature 102.9 F H 102.5 F H Temperature Source Oral Oral Pulse Rate 106 H 101 H Respiratory Rate 19 H 19 H Blood Pressure 158/78 H 152/79 H Blood Pressure Mean 104 103 Pulse Ox 99 99 Oxygen Delivery Method Room Air Room Air Positive well nourished and well developed General Appearance ED: well developed and NAD HEENT Reports moist mucous membranes Neck supple and no JVD Resp normal respiratory effort and clear to auscultation bilaterally Cardio regular rhythm Rate: tachycardic GI non-distended Palpation: soft and tender suprapubic; Negative for guarding or rebound tenderness present Neuro oriented x3, CN's II-XII intact bilaterally and no sensory deficits noted Sensorium / Orientation: alert Motor Exam: strength 5/5 throughout Psych mental status grossly normal MDM MDM MDM Narrative Medical decision making narrative: Differential diagnose includes urinary tract infection, hematuria, ureteral calculus, colitis, and perforation. CT scan of the abdomen pelvis will be obtained to assess for perforation and ureteral calculus. CBC will be obtained to assess for leukocytosis and anemia. Comprehensive metabolic profile will be obtained to assess for electrolyte abnormality, hepatic function, and renal function. Urinalysis will be obtained to assess for urinary tract infection and hematuria. Blood culture will be obtained to assess for sepsis. Urine culture will be obtained to assess for urinary tract infection. Lab Data Attestation: I reviewed the patient's lab results. Lab results narrative: CBC was reviewed. There is a mild leukocytosis of 13.3. The remainder is within normal limits. Comprehensive metabolic profile was reviewed. Sodium was slightly low at 132. BUN was slightly elevated at 28. The remainder is within normal limits. Urinalysis was reviewed. There is slightly cloudy yellow urine with a specific gravity 1.020. Leukocyte esterase was 500 with greater than 100 white blood cells. There is 3+ bacteria. Labs: Laboratory Results - last 24 hr 07/05/24 07/05/24 16:50 17:25 WBC 13.3 H RBC 5.61 Hgb 16.8 H Hct 49.7 MCV 88.6 MCH 29.9 MCHC 33.8 RDW Std Deviation 42.1 RDW Coeff of Cullen 12.9 Plt Count 204 MPV 9.2 Immature Gran % (Auto) 0.400 Neut % (Auto) 91.6 H Lymph % (Auto) 3.4 L Hardin % (Auto) 4.3 Eos % (Auto) 0.0 Baso % (Auto) 0.3 Absolute Neuts (auto) 12.2 H Absolute Lymphs (auto) 0.45 L Nucleated RBC % 0 Sodium 132 L Potassium 4.5 Chloride 101 Carbon Dioxide 24.0 Anion Gap 7 BUN 28 H Creatinine 1.26 Estim Creat Clear Calc 53.19 Est GFR (MDRD) Af Amer 73 Est GFR (MDRD) Non-Af 61 BUN/Creatinine Ratio 22.2 H Glucose 115 H Calcium 8.9 Total Bilirubin 0.90 AST 50 H ALT 33 Alkaline Phosphatase 85 Total Protein 7.3 Albumin 3.1 L Globulin 4.2 Albumin/Globulin Ratio 0.7 L Urine Color Yellow Urine Clarity Sl. Cloudy Urine pH 5.0 Ur Specific [place] 1.020 Urine Protein 30 H Urine Glucose (UA) Normal Urine Ketones 50 H Urine Occult Blood 150 H Urine Nitrite Negative Urine Bilirubin Negative Urine Urobilinogen 1 H Ur Leukocyte Esterase 500 H Urine RBC 0 SEEN Urine WBC >100 SEEN Ur Squamous Epith Cells 0 SEEN Urine Bacteria 3+ Fine Granular Casts 0-5 SEEN Urine Mucus 2+ Radiography Diagnostic Testing: Clinical Impression(s) from Imaging Studies Abdomen/Pelvis CT 07/05/24 19:42 IMPRESSION: Mild right perinephric stranding secondary to tiny nonobstructing calculus in the distal right ureter Electronically Signed: Timbo Lopez MD at 20:52 EST Reading Location ID and State: [facility] / [place] Tel [phone], Service support , CT scan of the abdomen pelvis was obtained. There is mild right perinephric stranding secondary to a nonobstructing calculus of the right distal ureter. This was interpreted by the radiologist and was also independently reviewed by myself. Treatment and Re-Evaluation :: Patient was given IV fluids and Zofran. Patient was given a dose of Rocephin. Patient's fever returned. Patient was given a dose of Tylenol. Patient was advised of his findings. Case was discussed with Dr. Roe. He will admit the patient to his service. Patient understood and was agreeable with the plan. All questions were answered. Discharge Plan Triage Chief Complaint: Complaint ED Provider: Noah Montiel Dx/Rx/DC Orders Clinical Impression: Urinary tract infection, Calculus of distal right ureter, Leukocytosis Prescriptions: No Action oxybutynin chloride 10 mg tablet extended release 24hr 10 mg PO DAILY tamsulosin 0.4 mg capsule 0.4 mg PO DAILY epinephrine [EpiPen 2-Boubacar] 0.3 mg/0.3 mL auto-injector 0.3 mg IM Q4H PRN (Reason: anaphylaxis) Qty: 2 0RF Rx Instructions: If you ever have a severe allergic reaction again. Primary Care Provider: Rohan Amezcua Referrals: Rohan Amezcua DO [Primary Care Provider] - Print Language: Welsh Disposition Disposition: Acute Care [facility]
[2024-07-05] MEDS: Ondansetron 4 MG/2 ML Vial IV (19:53)
[2024-07-05] MEDS: 0.9% Normal Saline (1000mL) 1,000 ML 1000 ML IV (19:54)
[2024-07-05] MEDS: Cefazolin 1 GM/50 ML BAG IV (20:14)
[2024-07-05] MEDS: Ceftriaxone 1 GM/50 ML BAG IV (22:00)
[2024-07-05] MEDS: Acetaminophen 500 MG Tablet 1000 MG PO (22:08)
[2024-07-06] VITALS (13 sets, daily range): BP systolic 102–139; BP diastolic 49–74; PULSE 89–115; RESP 16–18; TEMP 36.3–39.4; O2SAT 92–96; BMI 25.7
[2024-07-06] MEDS: 0.9% Normal Saline (1000mL) 1,000 ML 50 ML IV (00:09)
[2024-07-06] MEDS: Acetaminophen 500 MG Tablet PO ×4 (03:30→18:29)
[2024-07-06] MEDS: Ondansetron 4 MG/2 ML Vial IV (03:35)
--- NOTE | 2024-07-06 07:36 | PCM.HP.STD ---
HPI - General General Date of Admission: 07/05/24 Date of Service: 07/05/24 Chief Complaint: Fevers and chills HPI Narrative JEREMY ADAM, is a 68 M who presents to the hospital with a high fever of 102 and chills, is also been having pain in the right side has a history of bladder cancer had a resected cancer from his bladder a while back ago he was undergoing BCG therapy he was doing fairly well with this but then after his last treatment he came in with a high fevers and chills possible infection urine cultures pending CAT scan was done that demonstrates a stone in the distal right ureter with this infection and obstructing stone in the ureter Walker to proceed with a cystoscopy and stent placement today and continue with IV broad-spectrum antibiotics. PFSH Medical History Bladder cancer Wears dentures Cancer Bladder disease Heartburn Former smoker Home Medications ?Medication ?Instructions ?Recorded ?Last Taken ?Type epinephrine 0.3 mg/0.3 mL 0.3 mg (0.3 mL) IM Q4H PRN 04/16/24 Unknown Rx injection, auto-injector (EpiPen anaphylaxis #2 ea 2-Boubacar) oxybutynin chloride 10 mg 10 mg PO DAILY 07/05/24 Unknown History tablet,extended release 24 hr tamsulosin 0.4 mg capsule 0.4 mg PO DAILY 07/05/24 Unknown History Allergy/AdvReac Type Severity Reaction Status Date / Time bee venom protein (honey Allergy Anaphylaxis Verified 07/05/24 16:37 bee) (bee sting) Surgical History Hx of cystoscopy History of colonoscopy History of removal of skin mole History of mandibular surgery Social History Smoking Status: Former smoker ROS Constitutional Constitutional: Denies chills, fever(s) or malaise Eyes Eyes: Denies blurry vision or change in vision ENT HEENT: Reports none Cardiovascular Cardiovascular: Denies chest pain or palpitations Respiratory/Chest Respiratory/Chest: Denies cough or shortness of breath with exertion Gastrointestinal Gastrointestinal: Denies abdominal pain, constipation or diarrhea Musculoskeletal Musculoskeletal: Denies back pain, joint stiffness or joint swelling Integumentary Integumentary: Denies dry skin, jaundice, lesions or rash Neurologic Neurologic: Denies confusion, syncope or weakness Psychiatric Psychiatric: Reports none; Denies anxiety or depression Endocrine Endocrinology: Denies excessive sweating, fatigue or flushing Hematologic/Lymphatic Hematologic/Lymphatic: Denies anemia, easy bleeding or easy bruising Vital Signs Vital Signs Vital Signs: 07/05/24 16:35 07/05/24 19:00 07/05/24 20:00 Temperature 99.8 F H 100.7 F H 102.6 F H Temperature Source Oral Oral Oral Pulse Rate 114 H 109 H 106 H Respiratory Rate 18 15 20 H Respiratory Effort Respiratory Depth Respiratory Pattern Blood Pressure 119/69 162/89 H 160/61 H Blood Pressure Mean 85 113 94 Blood Pressure Source Blood Pressure Position Blood Pressure Location Pulse Ox 98 Oxygen Delivery Method Room Air Room Air Room Air 07/05/24 21:00 07/05/24 22:00 07/05/24 22:49 Temperature 102.9 F H 102.5 F H 100.2 F H Temperature Source Oral Oral Pulse Rate 106 H 101 H 98 Respiratory Rate 19 H 19 H 20 H Respiratory Effort Respiratory Depth Respiratory Pattern Blood Pressure 158/78 H 152/79 H 168/77 H Blood Pressure Mean 104 103 107 Blood Pressure Source Blood Pressure Position Blood Pressure Location Pulse Ox 99 99 99 Oxygen Delivery Method Room Air Room Air 07/05/24 23:00 07/05/24 23:27 07/05/24 23:53 Temperature 100.2 F H 99.5 F H Temperature Source Oral Oral Pulse Rate 100 98 Respiratory Rate 19 H 18 Respiratory Effort Normal Non-Labored Respiratory Depth Normal Respiratory Pattern Normal Blood Pressure 163/77 H 134/71 H Blood Pressure Mean 105 92 Blood Pressure Source Blood Pressure Position Blood Pressure Location Pulse Ox 99 96 Oxygen Delivery Method Room Air Room Air Room Air 07/06/24 03:25 07/06/24 03:25 07/06/24 05:34 Temperature 100.9 F H 99.6 F H Temperature Source Oral Oral Pulse Rate 115 H 102 H Respiratory Rate 18 18 Respiratory Effort Normal Non-Labored Respiratory Depth Normal Respiratory Pattern Normal Blood Pressure 102/49 L 113/56 L Blood Pressure Mean 66 75 Blood Pressure Source Monitor Monitor Blood Pressure Position Semi-Fowlers Semi-Fowlers Blood Pressure Location Left Arm Left Arm Pulse Ox 92 95 Oxygen Delivery Method Room Air Room Air Room Air Weight Weight: 74.6 kg Body Mass Index (BMI) 25.7 Physical Exam Const alert and oriented x3 General Appearance: cooperative HEENT normocephalic and head/scalp atraumatic Eyes PERRL and EOMs intact bilaterally Neck supple, no JVD and no carotid bruits Resp normal respiratory effort, normal air movement and clear to auscultation bilaterally Cardio regular rate and no murmurs GI normal to inspection, nondistended, normoactive bowel sounds and soft to palpation Extremity normal capillary refill General Extremity: no tenderness to palpation of joints or extremities; Negative for edema Skin no rashes or lesions noted and no wounds General Skin Exam: no breakdown Neuro CN's II-XII intact bilaterally Psych affect normal Appearance: appropriate Results Medical Records Data Attestation: I reviewed the patient's medical records Lab / Micro Data 07/05/24 17:25 07/05/24 17:25 Labs: Laboratory Results - last 24 hr 07/05/24 16:50: Urine Color Yellow, Urine Clarity Sl. Cloudy, Urine pH 5.0, Ur Specific [place] 1.020, Urine Protein 30 H, Urine Glucose (UA) Normal, Urine Ketones 50 H, Urine Occult Blood 150 H, Urine Nitrite Negative, Urine Bilirubin Negative, Urine Urobilinogen 1 H, Ur Leukocyte Esterase 500 H, Urine RBC 0 SEEN, Urine WBC >100 SEEN, Ur Squamous Epith Cells 0 SEEN, Urine Bacteria 3+, Fine Granular Casts 0-5 SEEN, Urine Mucus 2+ 07/05/24 17:25: WBC 13.3 H, RBC 5.61, Hgb 16.8 H, Hct 49.7, MCV 88.6, MCH 29.9, MCHC 33.8, RDW Std Deviation 42.1, RDW Coeff of [place]ullen 12.9, Plt Count 204, MPV 9.2, Immature Gran % (Auto) 0.400, Neut % (Auto) 91.6 H, Lymph % (Auto) 3.4 L, [place] % (Auto) 4.3, Eos % (Auto) 0.0, Baso % (Auto) 0.3, Absolute Neuts (auto) 12.2 H, Absolute Lymphs (auto) 0.45 L, Nucleated RBC % 0, Sodium 132 L, Potassium 4.5, Chloride 101, Carbon Dioxide 24.0, Anion Gap 7, BUN 28 H, Creatinine 1.26, Estim Creat Clear Calc 53.19, Est GFR (MDRD) Af Amer 73, Est GFR (MDRD) Non-Af 61, BUN/Creatinine Ratio 22.2 H, Glucose 115 H, Calcium 8.9, Total Bilirubin 0.90, AST 50 H, ALT 33, Alkaline Phosphatase 85, Total Protein 7.3, Albumin 3.1 L, Globulin 4.2, Albumin/Globulin Ratio 0.7 L Imaging Radiology Impression Abdomen/Pelvis CT 07/05/24 19:42 IMPRESSION: Mild right perinephric stranding secondary to tiny nonobstructing calculus in the distal right ureter Electronically Signed: Timbo Lopez MD at 20:52 EST Reading Location ID and State: [facility] / [place] Tel , Service support , Assessment & Plan Assessment/Plan (1) Leukocytosis: PLAN: Continue with broad-spectrum antibiotics (2) Calculus of distal right ureter: PLAN: Plan for cystoscopy stent placement (3) Urinary tract infection: PLAN: Await urine cultures continue with antibiotics
--- NOTE | 2024-07-06 08:59 | PN.HOSP_ITS ---
Reason for Visit Reason for Visit: Fever Subjective Subjective Patient is a 68-year-old white male with a history of bladder cancer status post resection on 05/12/2024 and currently on BCG therapy following with Dr. Roe who presented to the emergency department at [facility] on 07/05/2024 due to 3 days of dysuria and fever. Patient reported he had some mild hematuria following surgery but that had resolved. He noted that his fever has been as high as 103.5 at home and he had been taking Tylenol and ibuprofen for this with no significant proven. He did admit to some nausea and vomiting and some general myalgias as well. He contacted Dr. Roe office and reported that initially he was given call in an antibiotic but then told him to come to the emergency department for evaluation. Vital signs on presentation showed a temperature of 99.8 with a Tmax in the ED of 102.9, heart rate 114, respiratory 18, blood pressure 119/69 and pulse ox was 98% on room air. He had a leukocytosis with a white count of 13.3 and the left shift with a 91.6% neutrophilia. CMP showed mild hyponatremia and slightly elevated BUN and creatinine of 28 and 1.26. Sodium level was 132. Liver function was unremarkable. UA was suggestive of infection showing occult blood, leuk esterase, greater than 100 white cells and 3+ bacteria. CT of the abdomen and pelvis showed mild right perinephritic stranding and a tiny nonobstructing calculus in the distal right ureter. Urology admitted the patient with plans for cystoscopy and lithotripsy with stent placement to the right kidney today and have consulted us for medical management to include concerns for sepsis. Patient was placed on antibiotics with ceftriaxone and blood and urine cultures were obtained in the emergency department prior to antibiotic administration. He is still having intermittent fevers today. He states he gets sweats. Intermittent rigors. Nausea vomiting seems to be improved. I did discuss with he and his that we would transition him from ceftriaxone to Zosyn to cover Pseudomonas since he had recent instrumentation. No previous cultures are available for review. Objective Data Objective Data Vital Signs: Vital Signs Temp Pulse Resp BP Pulse Ox O2 Del Method 102.9 F H 102 H 18 137/74 H 95 Room Air 07/06/24 07:46 07/06/24 07:46 07/06/24 07:46 07/06/24 07:46 07/06/24 07:46 07/06/24 07:49 Oxygen Delivery Method Room Air Weight: 74.6 kg Body Mass Index (BMI) 25.7 Intake & Output: Intake and Output for Last 24 Hours 07/04/24 07/05/24 07/06/24 23:59 23:59 23:59 Intake Total 1200 / 1200 379.17 / 379.17 Balance 1200 / 1200 379.17 / 379.17 Lab / Micro Data 07/05/24 17:25 07/05/24 17:25 Labs: Laboratory Results - last 24 hr 07/05/24 16:50: Urine Color Yellow, Urine Clarity Sl. Cloudy, Urine pH 5.0, Ur Specific [place] 1.020, Urine Protein 30 H, Urine Glucose (UA) Normal, Urine Ketones 50 H, Urine Occult Blood 150 H, Urine Nitrite Negative, Urine Bilirubin Negative, Urine Urobilinogen 1 H, Ur Leukocyte Esterase 500 H, Urine RBC 0 SEEN, Urine WBC >100 SEEN, Ur Squamous Epith Cells 0 SEEN, Urine Bacteria 3+, Fine Granular Casts 0-5 SEEN, Urine Mucus 2+ 07/05/24 17:25: WBC 13.3 H, RBC 5.61, Hgb 16.8 H, Hct 49.7, MCV 88.6, MCH 29.9, MCHC 33.8, RDW Std Deviation 42.1, RDW Coeff of Cullen 12.9, Plt Count 204, MPV 9.2, Immature Gran % (Auto) 0.400, Neut % (Auto) 91.6 H, Lymph % (Auto) 3.4 L, [place] % (Auto) 4.3, Eos % (Auto) 0.0, Baso % (Auto) 0.3, Absolute Neuts (auto) 12.2 H, Absolute Lymphs (auto) 0.45 L, Nucleated RBC % 0, Sodium 132 L, Potassium 4.5, Chloride 101, Carbon Dioxide 24.0, Anion Gap 7, BUN 28 H, Creatinine 1.26, Estim Creat Clear Calc 53.19, Est GFR (MDRD) Af Amer 73, Est GFR (MDRD) Non-Af 61, BUN/Creatinine Ratio 22.2 H, Glucose 115 H, Calcium 8.9, Total Bilirubin 0.90, AST 50 H, ALT 33, Alkaline Phosphatase 85, Total Protein 7.3, Albumin 3.1 L, Globulin 4.2, Albumin/Globulin Ratio 0.7 L Radiography Diagnostic Testing: Radiology Impression Abdomen/Pelvis CT 07/05/24 19:42 IMPRESSION: Mild right perinephric stranding secondary to tiny nonobstructing calculus in the distal right ureter Electronically Signed: Timbo Lopez MD at 20:52 EST Reading Location ID and State: [facility] / [place] Tel , Service support , Physical Exam Const alert, oriented x3, average body habitus and well nourished Constitutional Narrative: Upper middle-aged, white male, lying in bed, appears ill but not toxic at this time, at bedside HEENT head/scalp atraumatic and moist oral mucous membranes HEENT Narrative: Mallampati 2-3, no thrush Head and Scalp: normocephalic Resp normal respiratory effort, no retractions, no use of accessory muscles and clear to auscultation bilaterally Auscultation: Negative for rales, rhonchi or wheezes Cardio regular rhythm, S1 normal heart sound, S2 normal heart sound, no murmurs, no rub, no gallops and no clicks; Negative for regular rate GI normal to inspection, nondistended, normoactive bowel sounds, soft to palpation and non-tender Extremity no clubbing, cyanosis or edema Extremity Narrative: Pedal and radial pulses are 2+ Neuro oriented x3, moves all extremities and no focal motor deficits Speech: speech normal Psych affect normal Psych Narrative: Pleasant, interacts appropriately Assessment & Plan Assessment/Plan (1) Leukocytosis: (2) Urinary tract infection: (3) Calculus of distal right ureter: (4) Tachycardia: (5) Leukocytosis: (6) Dehydration: (7) Hyponatremia: PLAN: Plan Acute urinary tract infection with right nephrolithiasis -Patient does not meet sep 3 guidelines for sepsis -Patient does meet sep 1 guidelines for sepsis -I am concerned that post intervention patient could become hypotensive so I have asked nursing to monitor him closely after he returns from cystoscopy with stent placement -Continue IV fluids as ordered -Urine and blood cultures are pending -Will continue antibiotics but transition from ceftriaxone to Zosyn to cover Pseudomonas with recent instrumentation -Surgical intervention per primary service Dehydration -continue IV fluids -Appears to be improving Mild hyponatremia -Sodium on admission was 132 -repeat lab in a.m. 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
[2024-07-06] MEDS: Piperacil/Tazobactam 3.375 GM in 0.9% Normal Saline (50mL MB+) 50 ML IV ×3 (10:40→20:36)
[2024-07-06] MEDS: 0.9% Normal Saline (1000mL) 1,000 ML 125 ML IV ×2 (12:26→18:30)
--- NOTE | 2024-07-06 14:53 | PRE.ANES_ITS ---
ASA Classification* ASA Classification ASA Classification: 2 Assessment & Plan Anesthesia* Anesthesia Assessment Anesthesia Assessment: Discussed sedation and/or anesthesia options, risks, benefits, and alternatives with patient/parents/legal guardian/POA. Questions invited. The patient/parents/legal guardian/POA seems to understand and agrees to proceed with anesthesia plan. Reviewed the physical assessment, medical history, allergy history and patient home medications list prior to surgery/procedure/anesthetic and documented any changes. Performed airway and anesthesia risk assessments. Anesthesia Type Anesthesia Type: MAC History Source History Obtained from:: Patient and Chart Anesthesia Focused Assessment* Temperature: 99.7 F Pulse Rate: 107 Blood Pressure: 137/67 Respiratory Rate: 18 Pulse Ox: 93 Oxygen Delivery Method: Room Air Airway Assessment Mouth opens: >3 cm Mallampati Score: IV Teeth Condition: Dentures (Patient has full dentures top and bottom. They are out) Neck Range of motion (ROM): Full ROM Focused Labs Anesthesia Preop lab: CBC WBC 13.3 K/mm3 (4.4-11.0) H 07/05/24 17:25 RBC 5.61 M/mm3 (4.6-6.2) 07/05/24 17:25 Hgb 16.8 g/dL (13.0-16.5) H 07/05/24 17:25 Hct 49.7 % (40-54) 07/05/24 17:25 Plt Count 204 K/mm3 (150-450) 07/05/24 17:25 CHEMISTRY Potassium 4.5 mmol/L (3.5-5.1) 07/05/24 17:25 Sodium 132 mmol/L (136-145) L 07/05/24 17:25 BUN 28 mg/dL (7-18) H 07/05/24 17:25 Creatinine 1.26 mg/dL (0.70-1.30) 07/05/24 17:25 Glucose 115 mg/dL (74-106) H 07/05/24 17:25 POC Glucose 123 mg/dL (74-106) H 04/16/24 17:34 COAG Pre-Assessment Diagnosis/Proposed Procedure Planned Operative Procedure(s): Cystoscopy right stent insertion. Anesthesia History Anesthesia History - airplane pilot photogrammetry: Anesthesia History - airplane pilot photogrammetry Hx Hospitalization No 04/14/24 10:54 Any Problems With Anesthesia No 07/06/24 03:28 Cholinesterase deficiency No 07/06/24 03:28 You/Your Family Experience No 07/06/24 03:28 fever (hyperthermia) with Relationship Recent Exposure to Contagious No 07/06/24 03:28 Disease Does patient have nerve No 07/06/24 03:28 stimulator Patient instructed to have No 07/06/24 03:28 device shut off --Does patient have Pacemaker No 07/06/24 12:51 or ICD? When Was Last Pacemaker Check QUESTION #4 FULL TEXT: You/Your Family Experience fever (hyperthermia) with Anesthesia Last Oral Intake Last Oral intake: Last Oral Intake NPO since 02:00 07/06/24 12:51 Meds taken in AM with sips of water? Meds patient instructed to TYLENOL FOR FEVER 07/06/24 12:51 take am of surgery Any additional information?: Yes Meds taken in AM with sips of water?: Yes PONV PONV - airplane pilot photogrammetry: PONV - airplane pilot photogrammetry Female HX of Motion Sickness HX of N/V After Surgery Non-Smoker Duration of Surgery greater than 60 minutes Number of Risk Factors PONV Score Height & Weight Height & Weight: Anesthesia: Height & Weight Height 5 ft 7 in 07/06/24 12:51 Weight: 74.6 kg 07/06/24 12:51 Body Mass Index (BMI) 25.7 07/06/24 12:51 Respiratory Assessment Respiratory Assessment - airplane pilot photogrammetry: Respiratory Tract Infection Hx - airplane pilot photogrammetry Hx Respiratory Tract Infection No 07/06/24 03:28 STOP Sleep Apnea STOP Sleep Apnea - airplane pilot photogrammetry: STOP Sleep Apnea - airplane pilot photogrammetry Hx Hypertension No 07/05/24 23:24 Hx Sleep Apnea No 07/05/24 23:24 CPAP BIPAP Do you snore loudly (louder Yes 07/05/24 23:24 than talking or can be heard Do you often feel tired/ No 07/05/24 23:24 fatigued/ sleepy during daytime? Has anyone observed you stop No 07/05/24 23:24 breathing during sleep? STOP Results Negative 07/05/24 23:24 QUESTION #5 FULL TEXT : Do you snore loudly (louder than talking or can be heard through closed doors)? Tobacco Use History Tobacco Use History - airplane pilot photogrammetry: Tobacco Use History - airplane pilot photogrammetry Tobacco Use Smoking Status Former smoker 07/05/24 23:24 Hx Tobacco Use No 07/05/24 23:24 Years Smoking Packs Smoked per Day Smoking Cessation Date was No - quit smoking greater 07/05/24 23:24 within the last 15 years than 15 years ago Hx Smoking Cessation Date 08/30/06 07/05/24 23:24 Hx Smoking Cessation Counseling Hematologic Medial History Hematologic Hx - airplane pilot photogrammetry: Hematologic Medical Hx - emergency medicine physician Hx of Blood Transfusion No 07/05/24 23:24 Hx of Transfusion in last 3 No 07/05/24 23:24 Months Date of Last Transfusion (if within last 3 months) Ever experience any problems No 07/05/24 23:24 with transfusion(s)? Specify any problems Hx of Preganancy in last 3 N/A 07/05/24 23:24 Months Nurse Filling Out Transfusion DREDICK 07/05/24 23:24 & Questions: Date: 07/05/24 07/05/24 23:24 Time: 23:25 07/05/24 23:24 Patient unable to answer at this time (ie. confused, unrespo /Reproduction History /Reproductive History - airplane pilot photogrammetry: /Reproductive Hx- airplane pilot photogrammetry Hx Now No 07/06/24 03:28 Gestational Age (in weeks): EDC: Hx Hx Para Hx Section SAB No 07/06/24 03:28 Active Medications Active Medications: Current Medications Generic Name Dose Route Start Last Admin Trade Name Freq PRN Reason Stop Dose Admin Acetaminophen 500 mg 07/05/24 23:51 07/06/24 12:26 Acetaminophen 500 Mg Tablet PO 500 mg Q4H PRN PRN Administration Pain 1-10 or Fever Sodium Chloride 500 mls @ 15 mls/hr 07/05/24 23:18 IV .[id number] PRN Saline Flush Sodium Chloride 500 mls @ 15 mls/hr 07/05/24 23:18 IV .[id number] PRN Additional IVPB Infusion Sodium Chloride 1,000 mls @ 125 mls/hr 07/06/24 07:45 07/06/24 12:26 IV 07/06/24 23:44 125 mls/hr .Q8H JO Administration Protocol Piperacillin Sod/Tazobactam 50 mls @ 12.5 mls/hr 07/06/24 09:00 07/06/24 14:24 Sod 3.375 gm/ Sodium Chloride IV Not Given Q8 JO Piperacillin Sod/Tazobactam 50 mls @ 100 mls/hr 07/06/24 16:00 Sod 3.375 gm/ Sodium Chloride IV 07/06/24 16:29 X1 ONE Morphine Sulfate 1 - 2 mg 07/05/24 23:53 Morphine 2 Mg/Ml Syringe IV Q2H PRN PRN Pain Score 6-10 Ondansetron HCl 4 mg 07/05/24 23:52 07/06/24 03:35 Ondansetron 4 Mg/2 Ml Vial IV 4 mg Q6H PRN PRN Administration NAUSEA Sodium Chloride 10 - 40 ml 07/05/24 23:18 0.9% Saline Lock 10 Ml Syringe IV UD PRN SALINE FLUSH PFSH Medical History Bladder cancer Wears dentures Cancer Bladder disease Heartburn Former smoker Home Medications ?Medication ?Instructions ?Recorded ?Last Taken ?Type epinephrine 0.3 mg/0.3 mL 0.3 mg (0.3 mL) IM Q4H PRN 04/16/24 Unknown Rx injection, auto-injector (EpiPen anaphylaxis #2 ea 2-Boubacar) oxybutynin chloride 10 mg 10 mg PO DAILY 07/05/24 Unknown History tablet,extended release 24 hr tamsulosin 0.4 mg capsule 0.4 mg PO DAILY 07/05/24 Unknown History Allergy/AdvReac Type Severity Reaction Status Date / Time bee venom protein (honey Allergy Anaphylaxis Verified 07/05/24 16:37 bee) (bee sting) Surgical History Hx of cystoscopy History of colonoscopy History of removal of skin mole History of mandibular surgery Social History Smoking Status: Former smoker Review of Systems (Anesthesia) ROS Narrative System reviewed and no additional complaints, except as documented.
--- NOTE | 2024-07-06 16:04 | DCINST_ITS ---
Discharge Instructions Diet Discharge Diet: No restrictions Activity Discharge Activity: Return to Normal Activity and May Not Drive (while taking narcotic pain medications.) Dressing / Incision Call your doctor if you observe: Fever of 101 or Higher Follow Up Care Please Follow Up With: Gordo Roe MD When: Call [phone] for an appointment Test Results: Test results from this visit will be discussed in further detail at your follow- up appointment, if applicable. Discharge Plan Admission Admit Date/Time: 07/06/24 11:43 Attending Provider: Gordo Roe Primary Care Provider: Rohan Amezcua Consulting Providers: Tanisha Le Discharge Orders/Prescriptions Prescriptions: No Action oxybutynin chloride 10 mg tablet extended release 24hr 10 mg PO DAILY tamsulosin 0.4 mg capsule 0.4 mg PO DAILY epinephrine [EpiPen 2-Boubacar] 0.3 mg/0.3 mL auto-injector 0.3 mg IM Q4H PRN (Reason: anaphylaxis) Qty: 2 0RF Rx Instructions: If you ever have a severe allergic reaction again. Referrals / Follow Up: Rohan Amezcua DO [Primary Care Provider] -
--- NOTE | 2024-07-06 16:04 | OP.PCM_ITS ---
Operative Report (Standard) Operative Information Surgery/Procedure Performed: Cystoscopy retrograde right side and right stent Surgeon: Gordo Roe Date of Procedure: 07/06/24 Procedure Start Time: 15:42 Procedure Stop Time: 16:04 Pre-Operative Diagnosis: Obstructing distal right ureteral calculi and urinary tract infection sepsis Post-Operative Diagnosis: The same Select all DRAINS/GRAFTS/IMPLANTS that apply: Drains Drain details: Cystoscopy right stent Type of Anesthesia: General Estimated Blood Loss: None Specimen collected: No Description of surgery: Patient was taken back to the operative room at this with induction of anesthesi a he was placed in dorsolithotomy position. Patient has a elevated white blood count and infection and also the stone calculus in distal right ureter seen on CT scan because of the infection and when her unblock the right kidney and we will get her placed a stent on the right side plan to remove the stent in about 2 weeks. Patient is taken back to the operating room at this with duction of the MAC local anesthesia he was placed in dorsolithotomy position. Went of the bladder with a 21 M[place]gas[place] rigid cystourethroscope and cannulated the right ureter orifice with a Glidewire and a Pollick catheter performed retrograde pyelogram see contrast going up to the kidney and then coiled wire up into the right kidney and then over the wire placed a stent 6 Monegasque by 20 cm stent once the stent was in good position and then the stent coiled in the kidney and bladder good position I then drained the bladder and patient acetic reversed taken back to PACU in good condition. Surgical Findings: Retrograde pyelogram done on the right side and stent placed Orthopedically Impaired Teacher supervisor orchard: No Complications Complications: No Admit VTE Documentation VTE Present on Admission: No VTE Mechan Device Prophylaxis: SCD's VTE Pharm Prophylaxis ordered?: No
--- NOTE | 2024-07-06 16:10 | PCM.POST.ANE ---
Anesthesia: Postop Eval I Current Vital Signs Temperature: 99.7 F Pulse Rate: 89 Blood Pressure: 125/64 Respiratory Rate: 18 Pulse Ox: 96 Oxygen Delivery Method: Room Air Assessment Airway patent: Yes Spontaneous unlabored respirations: Yes Mental status: Awake and Calm nausea: No Vomiting: No Anesthesia Complication: No Fluid Hydration Crystalloid volume administer (ml): 400 Total IV fluid infused: 400 Progress Note Anesthesia document: Postop Eval 1 completed: Yes
--- NOTE | 2024-07-06 16:11 | POSTOPAN2_ITS ---
Anesthesia Postop Eval I Sum Postop Eval Completion status Anesthesia document: Postop Eval 1 completed: Yes Anesthesia Postop Eval I Summary Anesthesia Postop Eval I Summary: Anesthesia Postop Eval I: Assessment Summary Airway patent Yes 07/06/24 16:11 AUTOMATIC PILOT MECHANIC.[email or web address] Spontaneous unlabored Yes 07/06/24 16:11 AUTOMATIC PILOT MECHANIC.OT respirations Mental status Awake,Calm 07/06/24 16:11 AUTOMATIC PILOT MECHANIC.MDOT nausea No 07/06/24 16:11 AUTOMATIC PILOT MECHANIC.MDOT Vomiting No 07/06/24 16:11 AUTOMATIC PILOT MECHANIC.MDOT Anesthesia Postop Eval I: Fluid Summary Crystalloid volume administer 400 07/06/24 16:11 AUTOMATIC PILOT MECHANIC.MDOT (ml) Colloids volume administered ( ml) Blood Product volume administered (ml) Total IV fluid infused 400 07/06/24 16:11 AUTOMATIC PILOT MECHANIC.ANIA Anesthesia Postop Eval I: Summary Notes Anesthesia Complication No 07/06/24 16:11 AUTOMATIC PILOT MECHANIC.MDOT Anesthesia Complication Comment: Post-operative progress note Anesthesia: Postop Eval II Evaluation Mental status: Awake and Calm Pain Level: 0 nausea: No Vomiting: No Complications Anesthesia Complication: No
--- NOTE | 2024-07-06 16:11 | PCM.POSTANE2 ---
Anesthesia Postop Eval I Sum Postop Eval Completion status Anesthesia document: Postop Eval 1 completed: Yes Anesthesia Postop Eval I Summary Anesthesia Postop Eval I Summary: Anesthesia Postop Eval I: Assessment Summary Airway patent Yes 07/06/24 16:11 OIL FIELD EQUIPMENT MECHANIC.MDREESE Spontaneous unlabored Yes 07/06/24 16:11 OIL FIELD EQUIPMENT MECHANIC.OT respirations Mental status Awake,Calm 07/06/24 16:11 OIL FIELD EQUIPMENT MECHANIC.MDOT nausea No 07/06/24 16:11 OIL FIELD EQUIPMENT MECHANIC.MDOT Vomiting No 07/06/24 16:11 OIL FIELD EQUIPMENT MECHANIC.MDOT Anesthesia Postop Eval I: Fluid Summary Crystalloid volume administer 400 07/06/24 16:11 OIL FIELD EQUIPMENT MECHANIC.MDOT (ml) Colloids volume administered ( ml) Blood Product volume administered (ml) Total IV fluid infused 400 07/06/24 16:11 OIL FIELD EQUIPMENT MECHANIC.ANIA Anesthesia Postop Eval I: Summary Notes Anesthesia Complication No 07/06/24 16:11 OIL FIELD EQUIPMENT MECHANIC.MDOT Anesthesia Complication Comment: Post-operative progress note Anesthesia: Postop Eval II Evaluation Mental status: Awake and Calm Pain Level: 0 nausea: No Vomiting: No Complications Anesthesia Complication: No
[2024-07-07 00:09] VITALS: BP 119/63; PULSE 80; RESP 18; TEMP 36.4; O2SAT 98
[2024-07-07 05:46] VITALS: BP 131/65; PULSE 82; RESP 18; TEMP 36.6; O2SAT 95
[2024-07-07] MEDS: Piperacil/Tazobactam 3.375 GM in 0.9% Normal Saline (50mL MB+) 50 ML IV ×3 (05:52→22:33)
--- NOTE | 2024-07-07 07:06 | PCM.PN.HOSP ---
Reason for Visit Reason for Visit: Diagnoses Elevated white blood cell count, unspecified (07/06/24) Dehydration (07/06/24) Hypo-osmolality and hyponatremia (07/06/24) Calculus of ureter (07/06/24) Urinary tract infection, site not specified (07/06/24) Tachycardia, unspecified (07/06/24) Subjective Subjective Patient states he is definitely feeling better today. Fever curve seems to be improved. Complains of significant fatigue today. No pain currently. Heart rates better. Objective Data Objective Data Vital Signs: Vital Signs Temp Pulse Resp BP Pulse Ox O2 Del Method 97.9 F 82 18 131/65 H 95 Room Air 07/07/24 05:46 07/07/24 05:46 07/07/24 05:46 07/07/24 05:46 07/07/24 05:46 07/07/24 05:46 Oxygen Delivery Method Room Air Weight: 74.6 kg Body Mass Index (BMI) 25.7 Intake & Output: Intake and Output for Last 24 Hours 07/05/24 07/06/24 07/07/24 23:59 23:59 23:59 Intake Total 1200 / 1200 2925.00 / 2925.00 1050 / 1050 Output Total 1050 / 1050 200 / 200 Balance 1200 / 1200 1875.00 / 1875.00 850 / 850 Lab / Micro Data 07/07/24 06:45 07/07/24 06:45 Labs: Laboratory Results - last 24 hr 07/06/24 09:07: Lactic Acid 1.0 Micro: Microbiology 07/05/24 16:08 Urine, Clean Catch Urine Culture - Preliminary GPC Poss Enterococcus sp Physical Exam Const alert, oriented x3, no apparent distress, average body habitus and well nourished Constitutional Narrative: Upper middle-aged, white male, lying in bed, still appears ill but not as ill as yesterday, currently looks comfortable HEENT head/scalp atraumatic and moist oral mucous membranes Head and Scalp: normocephalic Resp normal respiratory effort, no retractions, no use of accessory muscles and clear to auscultation bilaterally Auscultation: Negative for rales, rhonchi or wheezes Cardio regular rhythm, S1 normal heart sound, S2 normal heart sound, no murmurs, no rub, no gallops and no clicks; Negative for regular rate GI normal to inspection, nondistended, normoactive bowel sounds, soft to palpation and non-tender Extremity no clubbing, cyanosis or edema Extremity Narrative: Pedal and radial pulses are 2+ Skin Skin Narrative: Skin is warm to touch and patient is somewhat diaphoretic Neuro oriented x3, moves all extremities and no focal motor deficits Speech: speech normal Psych affect normal Psych Narrative: Pleasant, interacts appropriately, appears tired Assessment & Plan Assessment/Plan (1) Leukocytosis: (2) Urinary tract infection: (3) Calculus of distal right ureter: (4) Tachycardia: (5) Dehydration: (6) Hyponatremia: PLAN: Plan Acute urinary tract infection with right nephrolithiasis Postop days 1 cystoscopy with stent placement -Continue IV fluids as ordered -Urine culture shows Enterococcus faecalis that is pansensitive -Blood cultures remain pending -Continue Zosyn for now -Urology is primary service Dehydration -Appetite is still not great -Will continue IV fluids with LR at 75 cc/h for 1 L Mild hyponatremia -Resolved Leukocytosis -Patient now with mild leukopenia however left shift is still present but improved Tachycardia -Resolved Transaminitis/hyperbilirubinemia -Etiology is unclear -Was normal yesterday -Will trend and repeat in a.m. 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
--- NOTE | 2024-07-07 07:19 | PCM.PN.GU ---
Subjective Subjective UTIs and fever s/p stent for stone stable, urine cx enterococcus sens pending. Objective Data Objective Data Vital Signs: Vital Signs Temp Pulse Resp BP Pulse Ox O2 Del Method 97.9 F 82 18 131/65 H 95 Room Air 07/07/24 05:46 07/07/24 05:46 07/07/24 05:46 07/07/24 05:46 07/07/24 05:46 07/07/24 05:46 Oxygen Delivery Method Room Air Weight: 74.6 kg Body Mass Index (BMI) 25.7 Intake & Output: Intake and Output for Last 24 Hours 07/05/24 07/06/24 07/07/24 23:59 23:59 23:59 Intake Total 1200 / 1200 2925.00 / 2925.00 1050 / 1050 Output Total 1050 / 1050 200 / 200 Balance 1200 / 1200 1875.00 / 1875.00 850 / 850 Lab / Micro Data 07/05/24 17:25 07/05/24 17:25 Labs: Laboratory Results - last 24 hr 07/06/24 09:07: Lactic Acid 1.0 Micro: Microbiology 07/05/24 16:08 Urine, Clean Catch Urine Culture - Preliminary GPC Poss Enterococcus sp Physical Exam Const alert and oriented x3 General Appearance: cooperative HEENT normocephalic and head/scalp atraumatic Eyes PERRL and EOMs intact bilaterally Neck supple, no JVD and no carotid bruits Resp normal respiratory effort, normal air movement and clear to auscultation bilaterally Cardio regular rate and no murmurs GI normal to inspection, nondistended, normoactive bowel sounds and soft to palpation Extremity normal capillary refill General Extremity: no tenderness to palpation of joints or extremities; Negative for edema Skin no rashes or lesions noted and no wounds General Skin Exam: no breakdown Neuro CN's II-XII intact bilaterally Psych affect normal Appearance: appropriate Assessment & Plan Assessment/Plan (1) Hyponatremia: (2) Dehydration: (3) Leukocytosis: (4) Tachycardia: (5) Leukocytosis: (6) Calculus of distal right ureter: (7) Urinary tract infection:
[2024-07-07 07:27] VITALS: BP 130/66; PULSE 73; RESP 18; TEMP 37.2; O2SAT 97
[2024-07-07 08:06] LABS: Absolute Lymphocyte Count 0.33 X10^3/uL (0.83-4.51); Absolute Neutrophil Count 3.7 X10^3/uL (2.0-7.7); Basophil# 0.01 X10^3/uL; Basophil% 0.2 % (0-1); Hematocrit 39.3 % (40-54); Hemoglobin 13.2 g/dL (13.0-16.5); Lymphocyte # 0.33 X10^3/ul (0.83-4.51); Lymphocyte % 7.9 % (19-41); Mean Corp Hgb Conc 33.6 g/dL (32-36); Mean Corpuscular Hgb 29.9 pg (27.0-32.0); Mean Corpuscular Volume 89.1 fL (80-94); Monocyte# 0.15 X10^3/uL; Monocyte% 3.6 % (0-10); NRBC Flagged by Analyzer 0 % (0-5); Neutrophil # 3.69 X10^3/uL (2.7-7.7); Neutrophil % 88.1 % (47-70); POSITIVE COUNT YES; POSITIVE DIFFERENTIAL YES; POSITIVE MORPHOLOGY YES; RBC Distribution Width CV 13.3 % (11.6-14.6); RBC Distribution Width SD 43.8 fl (35.1-43.9); Red Blood Count 4.41 M/mm3 (4.6-6.2); White Blood Count 4.2 K/mm3 (4.4-11.0)
[2024-07-07 09:05] LABS: ALB/GLOB Ratio 0.7 RATIO (0.9-2.4); AST(SGOT) 178 U/L (15-37); Alanine Aminotransfer ALT/SGPT 124 U/L (16-61); Albumin, Serum 2.2 g/dL (3.2-5.0); Alkaline Phosphatase 132 U/L (45-117); Anion Gap 7 (5-15); BUN 22 mg/dL (7-18); BUN/Creat Ratio 18.2 RATIO (10-20); Calcium,Total 7.8 mg/dL (8.5-10.1); Chloride 107 mmol/L (98-107); Creatinine, Serum 1.21 mg/dL (0.70-1.30); EST Glomerular Filtration Rate 63 mL/min (>60); Est Glom Filt Rate - Afr Amer 77 mL/min (>60); Estimated Creatinine Clearance 55.39 ml/min; Globulin 3.1 g/dL (2.2-4.2); Glucose 122 mg/dL (74-106); Phosphorus 2.5 mg/dL (2.5-4.9); Potassium 3.7 mmol/L (3.5-5.1); Protein, Total 5.3 g/dL (6.4-8.2); Sodium Level 136 mmol/L (136-145)
[2024-07-07 09:14] LABS: Differential Indicated SCAN CRITERIA MET
[2024-07-07 09:15] LABS: Platelet Estimate SLT DEC (ADEQ)
[2024-07-07] MEDS: Tolterodine Tartrate 2 MG CAP.SA PO (09:28)
[2024-07-07] MEDS: Tamsulosin HCl 0.4 MG Capsule PO (09:28)
--- NOTE | 2024-07-07 09:45 | CASEMGMT ---
RN CM Face to Face with patient for initial transition planning/care coordination assessment. RN CM introduced self and role at [facility]. Patient lying in bed, alert and oriented, at bedside. Patient willing to participate in assessment and is able to answer all questions appropriately. Care providers, pharmacy, and demographics verified. Strata: 2 PCP: Seven Specialists: Bhupinder, urologist; Preferred Pharmacy: [facility] Insurance: [employer] [facility], [place] [employer] Prescription Benefit: yes Living Will/HPOA: yes, Lucy COREAS: Living Arrangements: Patient lives with in a 2 story home. Patient is independent and able to ambulate stairs. Transportation: self, DME/HHC: Patient denies DME in the home. No previous HHC or SNF Patient wishes to discharge home, denies need for home health at this time. Patient states he has no further needs or concerns at this time. CM to follow for discharge planning needs that may arise. Disposition Plan: Patient to discharge home with family support and follow-up plans in place. Jessica FERGUSON, RN, CM
[2024-07-07] MEDS: Lactated Ringers 1,000 ML 75 ML IV (10:35)
[2024-07-07 11:45] VITALS: BP 136/73; PULSE 74; RESP 18; TEMP 36.4; O2SAT 98
[2024-07-07 17:16] VITALS: BP 123/81; PULSE 86; RESP 18; TEMP 36.7; O2SAT 98
[2024-07-07 22:27] VITALS: BP 144/82; PULSE 84; RESP 18; TEMP 36.9; O2SAT 95
[2024-07-08 05:23] VITALS: BP 145/81; PULSE 81; RESP 18; TEMP 36.9; O2SAT 93
[2024-07-08 05:26] LABS: Absolute Lymphocyte Count 0.86 X10^3/uL (0.83-4.51); Absolute Neutrophil Count 6.4 X10^3/uL (2.0-7.7); Basophil# 0.02 X10^3/uL; Basophil% 0.3 % (0-1); Eosinophil# 0.01 X10^3/uL; Eosinophils% 0.1 % (0-5); Hemoglobin 13.2 g/dL (13.0-16.5); Lymphocyte # 0.86 X10^3/ul (0.83-4.51); Lymphocyte % 10.8 % (19-41); Mean Corp Hgb Conc 33.8 g/dL (32-36); Mean Corpuscular Hgb 29.6 pg (27.0-32.0); Mean Corpuscular Volume 87.4 fL (80-94); Mean Platelet Vol. 9.6 fl (6.2-12.0); Monocyte# 0.66 X10^3/uL; Monocyte% 8.3 % (0-10); NRBC Flagged by Analyzer 0 % (0-5); Neutrophil # 6.36 X10^3/uL (2.7-7.7); POSITIVE MORPHOLOGY YES; Platelet Count 154 K/mm3 (150-450); RBC Distribution Width CV 13.4 % (11.6-14.6); RBC Distribution Width SD 43.3 fl (35.1-43.9); Red Blood Count 4.46 M/mm3 (4.6-6.2)
[2024-07-08] MEDS: Piperacil/Tazobactam 3.375 GM in 0.9% Normal Saline (50mL MB+) 50 ML IV (05:29)
[2024-07-08 06:09] LABS: ALB/GLOB Ratio 0.7 RATIO (0.9-2.4); AST(SGOT) 181 U/L (15-37); Alanine Aminotransfer ALT/SGPT 154 U/L (16-61); Albumin, Serum 2.3 g/dL (3.2-5.0); Alkaline Phosphatase 153 U/L (45-117); Anion Gap 7 (5-15); BUN 23 mg/dL (7-18); BUN/Creat Ratio 21.3 RATIO (10-20); Calcium,Total 8.3 mg/dL (8.5-10.1); Chloride 106 mmol/L (98-107); Creatinine, Serum 1.08 mg/dL (0.70-1.30); EST Glomerular Filtration Rate 72 mL/min (>60); Est Glom Filt Rate - Afr Amer 88 mL/min (>60); Estimated Creatinine Clearance 62.05 ml/min; Globulin 3.2 g/dL (2.2-4.2); Glucose 129 mg/dL (74-106); Potassium 3.5 mmol/L (3.5-5.1); Protein, Total 5.5 g/dL (6.4-8.2); Sodium Level 136 mmol/L (136-145)
[2024-07-08 06:30] LABS: Differential Indicated SCAN CRITERIA MET
[2024-07-08 08:32] LABS: Differential Comment SCANNED
[2024-07-08 10:00] VITALS: PULSE 95; RESP 18; O2SAT 98
[2024-07-08] MEDS: 0.9% Saline Lock 10 ML Syringe IV ×2 (10:03→11:06)
[2024-07-08] MEDS: Furosemide 20 MG/2 ML VIAL IV (10:03)
[2024-07-08 10:04] VITALS: BP 139/80; PULSE 95; RESP 18; TEMP 37; O2SAT 98
--- NOTE | 2024-07-08 10:06 | PN.HOSP_ITS ---
Reason for Visit Reason for Visit: Fever Subjective Subjective Patient appears to be doing better. Sitting up in his chair. States he is overall much improved since yesterday. Anxious to go home if possible. Objective Data Objective Data Vital Signs: Vital Signs Temp Pulse Resp BP Pulse Ox O2 Del Method 98.6 F 95 18 139/80 H 98 Room Air 07/08/24 10:04 07/08/24 10:04 07/08/24 10:04 07/08/24 10:04 07/08/24 10:04 07/08/24 10:04 Oxygen Delivery Method Room Air Weight: 74.6 kg Body Mass Index (BMI) 25.7 Intake & Output: Intake and Output for Last 24 Hours 07/06/24 07/07/24 07/08/24 23:59 23:59 23:59 Intake Total 2925.00 / 2925.00 3837.50 / 3837.50 271.25 / 271.25 Output Total 1050 / 1050 1650 / 1650 Balance 1875.00 / 1875.00 2187.50 / 2187.50 271.25 / 271.25 Lab / Micro Data 07/08/24 04:45 07/08/24 04:45 Labs: Laboratory Results - last 24 hr 07/08/24 04:45: WBC 8.0, RBC 4.46 L, Hgb 13.2, Hct 39.0 L, MCV 87.4, MCH 29.6, MCHC 33.8, RDW Std Deviation 43.3, RDW Coeff of [place]ullen 13.4, Plt Count 154, MPV 9.6, Immature Gran % (Auto) 0.500, Neut % (Auto) 80.0 H, Lymph % (Auto) 10.8 L, [place] % (Auto) 8.3, Eos % (Auto) 0.1, Baso % (Auto) 0.3, Absolute Neuts (auto) 6.4, Absolute Lymphs (auto) 0.86, Nucleated RBC % 0, Differential Comment SCANNED, Sodium 136, Potassium 3.5, Chloride 106, Carbon Dioxide 23.0, Anion Gap 7, BUN 23 H, Creatinine 1.08, Estim Creat Clear Calc 62.05, Est GFR (MDRD) Af Amer 88, Est GFR (MDRD) Non-Af 72, BUN/Creatinine Ratio 21.3 H, Glucose 129 H, C alcium 8.3 L, Total Bilirubin 1.10 H, AST 181 H, ALT 154 H, Alkaline Phosphatase 153 H, Total Protein 5.5 L, Albumin 2.3 L, Globulin 3.2, Albumin/Globulin Ratio 0.7 L Micro: Microbiology 07/05/24 19:54 Blood Culture (Wb) - Right Wrist Blood Culture - Preliminary No growth in 48 hours. 07/05/24 16:08 Urine, Clean Catch Urine Culture - Final Enterococcus faecalis Physical Exam Const alert, oriented x3, no apparent distress, average body habitus, healthy appearing and well nourished Constitutional Narrative: Upper middle-aged, sitting up in a chair at the bedside, and nursing at bedside, appears well, does not look toxic HEENT head/scalp atraumatic and moist oral mucous membranes Head and Scalp: normocephalic Resp normal respiratory effort, no retractions and no use of accessory muscles Resp Narrative: Crackles at bilateral bases Auscultation: crackles; Negative for rales, rhonchi or wheezes Cardio regular rhythm, S1 normal heart sound, S2 normal heart sound, no murmurs, no rub, no gallops and no clicks; Negative for regular rate GI normal to inspection, nondistended, normoactive bowel sounds, soft to palpation and non-tender Extremity no clubbing, cyanosis or edema Extremity Narrative: Pedal and radial pulses are 2+ Neuro oriented x3, moves all extremities and no focal motor deficits Speech: speech normal Psych affect normal Psych Narrative: Pleasant, interacts appropriately, appears as if he is feeling much better Assessment & Plan Assessment/Plan (1) Leukocytosis: (2) Urinary tract infection: (3) Calculus of distal right ureter: (4) Tachycardia: (5) Dehydration: (6) Hyponatremia: PLAN: Plan Acute urinary tract infection secondary to Enterococcus faecalis with right nephrolithiasis -Postop days 2 cystoscopy with stent placement -Discontinue IV fluids -Lasix 20 mg IV push x 1 dose to mobilize some fluids that he has been given -Transition to ciprofloxacin 400 twice daily and anticipate discharge with oral Cipro -Blood cultures were negative -Urology is primary service -Anticipate discharge later today Dehydration -Resolved Mild hyponatremia -Resolved Leukocytosis -Resolved Tachycardia -Resolved Transaminitis/hyperbilirubinemia -Remains elevated but trending down -May be antibiotic related or infection related -Recommend outpatient follow-up LFTs in 5 to 7 days--> discussed with patient and and placed on discharge information 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 Will sign off. Please reconsult if needed Charges/Coding Visit Charges Inpatient E&M: 58357 Subs Hosp L2
--- NOTE | 2024-07-08 10:58 | DS.PCM_ITS ---
Providers Date of Admission: 07/06/24 Date of Discharge: 07/08/24 Primary Care Physician: Dr. Rohan Amezcua, Consultations 07/06/24 08:55 Consult: Hospitalist Routine Consulting Provider: Tanisha Le Reason for Consult: fever and hypotension EMERGENT Consult: No MD Notified: Yes Date Notified: 07/06/24 Time Notified: 08:55 Method of Notification: Text Reason For Visit: UTI, RIGHT DISTAL URETERAL CALCULUS Diagnosis Discharge Diagnosis (1) Leukocytosis: Status: Acute Code(s): D72.829 - Elevated white blood cell count, unspecified Plan: Continue with broad-spectrum antibiotics (2) Urinary tract infection: Status: Acute Code(s): N39.0 - Urinary tract infection, site not specified Plan: Await urine cultures continue with antibiotics (3) Calculus of distal right ureter: Status: Acute Code(s): N20.1 - Calculus of ureter Plan: Plan for cystoscopy stent placement (4) Tachycardia: Status: Acute Code(s): R00.0 - Tachycardia, unspecified (5) Dehydration: Status: Acute Code(s): E86.0 - Dehydration (6) Hyponatremia: Status: Acute Code(s): E87.1 - Hypo-osmolality and hyponatremia Medications at Discharge Home Medications epinephrine 0.3 mg/0.3 mL injection, auto-injector (EpiPen 2-Boubacar) 0.3 mg (0.3 mL) IM Q4H PRN anaphylaxis #2 ea 04/16/24 oxybutynin chloride 10 mg tablet,extended release 24 hr 10 mg PO DAILY 07/05/24 tamsulosin 0.4 mg capsule 0.4 mg PO DAILY 07/05/24 ciprofloxacin HCl 500 mg tablet (Cipro) 500 mg PO BID #14 tabs 07/08/24 Hospital Course Operations - (Cystoscopy and right stent placement for stone) Summary of Care Provided Minutes Spent on Discharge: 35 Hospital Course: 68-year-old male history of bladder cancer status post resection he was undergoing treatment with BCG therapy he developed a very high fever, was instructed to come into the emergency room he was admitted for sepsis. He also found to have a kidney stones when he went to cystoscopy and stent placement he was on broad-spectrum antibiotics he is improved dramatically. Cultures came back Enterococcus pansensitive he will go home with Cipro for the next 7 days and follow-up in about 10 days for cystoscopy stent removal in the office for his kidney stone. Weight / BMI Weight Weight: 74.6 kg Body Mass Index (BMI) 25.7 ABG / Lab / Microbiology Data 07/08/24 04:45 07/08/24 04:45 Laboratory: Laboratory Results - last 24 hr 07/08/24 04:45: WBC 8.0, RBC 4.46 L, Hgb 13.2, Hct 39.0 L, MCV 87.4, MCH 29.6, MCHC 33.8, RDW Std Deviation 43.3, RDW Coeff of Cullen 13.4, Plt Count 154, MPV 9.6, Immature Gran % (Auto) 0.500, Neut % (Auto) 80.0 H, Lymph % (Auto) 10.8 L, [place] % (Auto) 8.3, Eos % (Auto) 0.1, Baso % (Auto) 0.3, Absolute Neuts (auto) 6.4, Absolute Lymphs (auto) 0.86, Nucleated RBC % 0, Differential Comment SCANNED, Sodium 136, Potassium 3.5, Chloride 106, Carbon Dioxide 23.0, Anion Gap 7, BUN 23 H, Creatinine 1.08, Estim Creat Clear Calc 62.05, Est GFR (MDRD) Af Amer 88, Est GFR (MDRD) Non-Af 72, BUN/Creatinine Ratio 21.3 H, Glucose 129 H, C alcium 8.3 L, Total Bilirubin 1.10 H, AST 181 H, ALT 154 H, Alkaline Phosphatase 153 H, Total Protein 5.5 L, Albumin 2.3 L, Globulin 3.2, Albumin/Globulin Ratio 0.7 L Microbiology: Microbiology 07/05/24 19:54 Blood Culture (Wb) - Right Wrist Blood Culture - Preliminary No growth in 48 hours. 07/05/24 16:08 Urine, Clean Catch Urine Culture - Final Enterococcus faecalis D/C Instructions Discharge Diet: No restrictions Call your doctor if you observe: Fever of 101 or Higher Please Follow Up With: Gordo Roe MD When: Call [phone] for an appointment Meaningful Use Info Meaningful Use Meaningful Use Diagnoses (Choose all that apply): None applicable Ischemic Stroke Statin Dosing Therapy Reference: STATIN DOSE THERAPY REFERENCE: * Patients > 75 years receive moderate or high dose statin therapy. * Patients 75 years or YOUNGER should receive HIGH intensity statin dose unless contraindicated. You will be required to document reason for non-treatment if statin daily dose does not meet guidelines. HIGH DOSE STATIN THERAPY DAILY Atorvastatin > than or = to 40 mg Rosuvastatin > than or = to 20 mg Amlodipine + Atorvastatin > than or = to 2.5/40 mg Ezetimibe + Simvastatin 10/80 mg Simvastatin 80mg Discharge Plan Admission Admit Date/Time: 07/06/24 11:43 Primary Reason for Your Visit: Fever Attending Provider: Gordo Roe Primary Care Provider: Rohan Amezcua Consulting Providers: Tanisha Le Instructions Additional Instructions / Restrictions: 1. Please call your primary care physician and asked that a liver panel be obtained in the next 5 to 7 days Discharge Orders/Prescriptions Prescriptions: New ciprofloxacin HCl [Cipro] 500 mg tablet 500 mg PO BID Qty: 14 0RF Continued oxybutynin chloride 10 mg tablet extended release 24hr 10 mg PO DAILY tamsulosin 0.4 mg capsule 0.4 mg PO DAILY epinephrine [EpiPen 2-Boubacar] 0.3 mg/0.3 mL auto-injector 0.3 mg IM Q4H PRN (Reason: anaphylaxis) Qty: 2 0RF Rx Instructions: If you ever have a severe allergic reaction again. Referrals / Follow Up: Gordo Roe MD [Med Staff - Active Staff] - Rohan Amezcua DO [Primary Care Provider] - Disposition Disposition (needs filled in before D/C Order can be placed): Home, Self Care
[2024-07-08] MEDS: Ciprofloxacin 400 MG/200 ML BAG 200 MG IV (11:06)
[2024-07-08] MEDS: Tamsulosin HCl 0.4 MG Capsule PO (11:07)
[2024-07-08] MEDS: Tolterodine Tartrate 2 MG CAP.SA PO (11:07)
[2024-07-08 13:59] VITALS: BP 125/68; PULSE 80; RESP 18; TEMP 36.6; O2SAT 98
== END 2024-07-08 14:19 | disposition home or self-care (01) | DRG 854 ==
LOC: ED 22:40 → MS3 22:47
PROVIDERS: Internal Medicine; Admitting Provider Urology; Emergency Provider Emergency Medicine; PCP Family Medicine; Visit Provider Urology
PROC: 0T768DZ Dilation of Right Ureter with Intraluminal Device, Via Natural or Artificial Opening Endoscopic (ICD-10-PCS; CPT 52332; principal; 2024-07-06 15:10)
DX: A41.81 Sepsis due to Enterococcus (principal); N20.1 Calculus of ureter; E87.1 Hypo-osmolality and hyponatremia; N13.8 Other obstructive and reflux uropathy; N39.0 Urinary tract infection, site not specified; C67.9 Malignant neoplasm of bladder, unspecified; E86.0 Dehydration; N40.1 Benign prostatic hyperplasia with lower urinary tract symptoms; Z79.899 Other long term (current) drug therapy; Z87.891 Personal history of nicotine dependence
CPT/HCPCS: 36415; 74176; 76000; 80053; 81001; 83605; 83735; 84100; 85025; 87040; 87077; 87086; 87088; 87186; 99284; J7030; J7040; J7120; A4216; C1769; C2617; J0744; J1940; J2405

== ENCOUNTER → 2024-07-18 | Outpatient (CLI) | payer OTHER, SELFPAY ==
[2024-07-18 14:02] LABS: AST(SGOT) 21 U/L (15-37); Alanine Aminotransfer ALT/SGPT 60 U/L (16-61); Albumin, Serum 3.1 g/dL (3.2-5.0); Alkaline Phosphatase 144 U/L (45-117); Bilirubin, Direct 0.19 mg/dL (0.00-0.30); Protein, Total 7.1 g/dL (6.4-8.2)
== END | disposition home or self-care (01) ==
LOC: LAB 12:36
PROVIDERS: PCP Family Medicine; Referring Provider Family Medicine; Visit Provider Family Medicine
DX: R74.8 Abnormal levels of other serum enzymes (principal)
CPT/HCPCS: 36415; 80076

== ENCOUNTER → 2024-12-28 | Outpatient (CLI) | payer OTHER, SELFPAY ==
--- NOTE | 2024-12-28 13:58 | ECHOD_ITS ---
Reason For Study Reason For Study: TIA Procedure This was a 2D Doppler, Color Flow transthoracic echocardiogram. Exam performed in department. Left Ventricle Normal LV size. Left ventricular systolic function is normal. The left ventricular ejection fraction is 65 %. Stage 1 diastolic dysfunction. No regional wall motion abnormalities noted. Right Ventricle Normal RV size. Normal systolic function. Atria Normal left atrium. Normal right atrium. Mitral Valve Normal mitral valve. Tricuspid Valve Normal tricuspid valve. Mild (1+) tricuspid valve insufficiency. Pulmonary artery systolic pressure is 28 mmHg. Aortic Valve Trisinus/trileaflet aortic valve. Pulmonic Valve Normal pulmonic valve. Great Vessels Normal aortic root. The pulmonary artery is normal size. Inferior vena cava collapse with respiration. Pericardium/Pleural No pericardial effusion. MMode/2D Measurements & Calculations LVIDd: 4.0 cm IVSd: 1.1 cm Ao root diam: 3.6 cm LVIDs: 2.5 cm LVPWd: 1.1 cm RVDd: 3.2 cm FS: 38.6 % LAV(MOD-bp): 31.3 ml LA A4 area: 12.7 cm2 LA dimension(2D): 3.3 cm LAV(MOD-bp) Indexed: 16.4 ml/m2 LAV(MOD-sp2): 34.4 ml LAV(MOD-sp4): 25.9 ml TAPSE: 1.6 cm RA A4 area: 13.1 cm2 Time Measurements MV dec time: 0.24 sec Doppler Measurements & Calculations MV E max franco: 62.1 cm/sec Lat Peak E' Franco: 6.0 cm/sec Med Peak E' Franco: 6.8 cm/sec MV A max franco: 81.3 cm/sec E/E' lat: 10.3 E/E' med: 9.1 MV E/A: 0.76 MV V2 max: 95.9 cm/sec MV P1/2t max franco: 77.0 cm/sec Ao V2 max: 108.2 cm/sec MV max P.7 mmHg MV P1/2t: 80.7 msec Ao max P.7 mmHg MV V2 mean: 55.6 cm/sec MV dec slope: 279.6 cm/sec2 Ao V2 mean: 77.2 cm/sec MV mean P.5 mmHg Ao mean P.8 mmHg MV V2 VTI: 21.1 cm MVA(P1/2t): 2.7 cm2 Ao V2 VTI: 21.7 cm AV (velocity ratio): 0.95 LV V1 max: 104.3 cm/sec TR max franco: 244.4 cm/sec LV V1 max P.4 mmHg TR max P.9 mmHg LV V1 mean P.2 mmHg LV V1 mean: 69.4 cm/sec LV V1 VTI: 20.6 cm ECHO/Echo Complete Interpretation Summary Normal LV size. Left ventricular systolic function is normal. The left ventricular ejection fraction is 65 %. Stage 1 diastolic dysfunction. Mild (1+) tricuspid valve insufficiency. Ordering Physician: Rohan Amezcua Referring Physician: Rohan Amezcua Performed By: Lam Rubio RCS
--- NOTE | 2024-12-28 13:58 | CDU_ITS ---
Reason For Study Reason For Study: TIA Rt. Velocities/BP Lt. Velocities/BP Prox CCA 100.3/21.2 cm/sec. Prox CCA 87.2/13.5 cm/sec. Mid CCA 107.2/22.5 cm/sec. Mid CCA 96.1/20.0 cm/sec. Dist CCA 87.6/18.8 cm/sec. Dist CCA 90.0/15.1 cm/sec. Prox ICA 70.7/15.7 cm/sec. Prox ICA 51.3/16.3 cm/sec. Mid ICA 79.5/23.4 cm/sec. Mid ICA 79.5/25.6 cm/sec. Dist ICA 76.2/22.3 cm/sec. Dist ICA 75.1/25.6 cm/sec. Rt. ICA/CCA = 0.7. Lt. ICA/CCA = 0.8. Prox ECA 115.6/11.5 cm/sec. Prox ECA 121.1/13.3 cm/sec. Rt. Vert. 41.3/10.7 cm/sec. Lt. Vert. 25.3/4.7 cm/sec. Right Extracranial There is homogeneous, smooth atherosclerotic plaque noted in the right common carotid artery. There is heterogeneous, irregular atherosclerotic plaque noted in the right internal carotid artery. There is homogeneous, smooth atherosclerotic plaque noted in the right external carotid artery. Antegrade flow is noted in the right vertebral artery. Left Extracranial There is homogeneous, smooth atherosclerotic plaque noted in the left common carotid artery. There is heterogeneous, irregular atherosclerotic plaque noted in the left internal carotid artery. There is intimal thickening but no significant atherosclerotic plaque noted in the left external carotid artery. Antegrade flow is noted in the left vertebral artery. Procedure Carotid Duplex [id number]. This is a Carotid Duplex examination using B-mode, color flow and specral Doppler. Exam performed in department. VL/Carotid Duplex Ultrasound Interpretation Summary Mild (<50%) stenosis right extracranial internal carotid. Mild (<50%) stenosis left extracranial internal carotid. Patent and antegrade vertebrals bilaterally. Ordering Physician: Rohan Amezcua Referring Physician: Rohan Amezcua Performed By: Charisma Cristobal RVT
== END | disposition home or self-care (01) ==
LOC: CVS 13:54
PROVIDERS: PCP Family Medicine; Referring Provider Family Medicine; Visit Provider Family Medicine
DX: I10 Essential (primary) hypertension (principal); Z86.73 Personal history of transient ischemic attack (TIA), and cerebral infarction without residual deficits
CPT/HCPCS: 93306; 93880

== ENCOUNTER → 2025-01-25 | Outpatient (CLI) | payer OTHER, SELFPAY ==
[2025-01-25 14:51] LABS: Cholesterol 182 mg/dL (<=200); High Density Lipoprotein 51 mg/dL; Low Density Lipoprotein Calc. 114 mg/dL; PSA,Total - Annual Screen 0.75 ng/mL (0.02-4.00); Triglycerides 85 mg/dL; Very Low Density Lipoprotein 17 mg/dL (5-40)
== END | disposition home or self-care (01) ==
LOC: LAB 13:02
PROVIDERS: PCP Family Medicine; Referring Provider Family Medicine; Visit Provider Family Medicine
DX: Z12.5 Encounter for screening for malignant neoplasm of prostate (principal); Z86.73 Personal history of transient ischemic attack (TIA), and cerebral infarction without residual deficits; N52.9 Male erectile dysfunction, unspecified
CPT/HCPCS: 36415; 80061; 84153; 84403; G0103

== ENCOUNTER → 2025-02-27 | Outpatient (CLI) | payer OTHER, SELFPAY ==
--- NOTE | 2025-02-27 18:00 | CT_ITS ---
PROCEDURE: LOW DOSE CT LUNG SCREENING 02/27/2025 REASON FOR EXAM: SCREENING TECHNIQUE: LOW DOSE CT LUNG SCREENING Coronal and Sagittal reconstruction series were provided. One or more dose reduction techniques were used (e.g., Automated exposure control, adjustment of the mA and/or kV according to patient size, use of iterative reconstruction technique). REFERENCE LINK: [facility] Lung-RADS RADIATION DOSE SUMMARY: CTDlvol: 2 mGy DLP: 73 mGycm COMPARISON: No FINDINGS: Central airways are patent. Mild bronchial wall thickening. Slight dependent atelectasis. Small apical scarring. Mild emphysema. No consolidation, effusion, or pneumothorax. On the left, series 2, image 138, 4.5 mm noncalcified upper lobe nodule. On the right, series 2, image 76, 4 mm noncalcified upper lobe nodule. Unremarkable base of neck and axilla. Thoracic spine degeneration. Normal esophagus. Normal heart size. No acute vascular pathology. No acute chest wall findings. CT/Low Dose CT Lung Screening IMPRESSION: 4.5 mm noncalcified left upper lobe nodule. In the absence of prior examinatio ns, this may be presumed to be a new lesion. Lung-RADS Category: 3 Other Significant Findings: Reading Location: [facility]
== END | disposition home or self-care (01) ==
LOC: CT 17:58
PROVIDERS: PCP Family Medicine; Referring Provider Family Medicine; Visit Provider Family Medicine
DX: Z12.2 Encounter for screening for malignant neoplasm of respiratory organs (principal); Z87.891 Personal history of nicotine dependence
CPT/HCPCS: 71271

== ENCOUNTER 2025-03-16 09:42 | Day surgery (SDC) | payer OTHER, SELFPAY ==
--- NOTE | 2025-03-09 15:36 | PAT.ANESEVAL ---
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 When Was Last Pacemaker Check QUESTION #4 FULL TEXT: You/Your Family Experience fever (hyperthermia) with Anesthesia Last Oral Intake Last Oral intake: Last Oral Intake NPO since Meds taken in AM with sips of water? 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 - research associate professor: PONV - research associate professor Female No 03/09/25 12:10 HX of Motion Sickness No 03/09/25 12:10 HX of N/V After Surgery No 03/09/25 12:10 Non-Smoker Yes 03/09/25 12:10 Duration of Surgery greater Yes 03/09/25 12:10 than 60 minutes Number of Risk Factors 2 03/09/25 12:10 PONV Score Moderate Risk 03/09/25 12:10 Height & Weight Height & Weight: Anesthesia: Height & Weight Height 5 ft 7 in 07/06/24 12:51 Respiratory Assessment Respiratory Assessment - research associate professor: Respiratory Tract Infection Hx - research associate professor Hx Respiratory Tract Infection No 03/09/25 12:10 STOP Sleep Apnea STOP Sleep Apnea - research associate professor: STOP Sleep Apnea - research associate professor Hx Hypertension No 03/09/25 12:10 Hx Sleep Apnea No 03/09/25 12:10 CPAP BIPAP Do you snore loudly (louder Yes 03/09/25 12:10 than talking or can be heard Do you often feel tired/ No 03/09/25 12:10 fatigued/ sleepy during daytime? Has anyone observed you stop No 03/09/25 12:10 breathing during sleep? STOP Results Negative 03/09/25 12:10 QUESTION #5 FULL TEXT : Do you snore loudly (louder than talking or can be heard through closed doors)? 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 Specify any problems Hx of Preganancy in last 3 N/A 03/09/25 12:10 Months Nurse Filling Out Transfusion DSCHRIBER 03/09/25 12:10 & Questions: Date: 03/09/25 03/09/25 12:10 Time: 12:11 03/09/25 12:10 Patient unable to answer at this time (ie. confused, unrespo /Reproduction History /Reproductive History - research associate professor: /Reproductive Hx- research associate professor Hx Now No 03/09/25 12:10 Gestational Age (in weeks): EDC: Hx Hx Para Hx Section SAB No 03/09/25 12:10 PFSH Medical History Wears glasses Marijuana use Alcohol use Arthritis Lung nodule TIA (transient ischemic attack) History of echocardiogram Bladder cancer Wears dentures Cancer Heartburn Former smoker Home Medications ?Medication ?Instructions ?Recorded ?Last Taken ?Type epinephrine 0.3 mg/0.3 mL 0.3 mg (0.3 mL) IM Q4H PRN 04/16/24 Unknown Rx injection, auto-injector (EpiPen anaphylaxis #2 ea 2-Boubacar) tamsulosin 0.4 mg capsule 0.4 mg PO QHS 07/05/24 Unknown History aspirin 81 mg capsule 81 mg PO DAILY 03/09/25 03/09/25 History Allergy/AdvReac Type Severity Reaction Status Date / Time bee venom protein (honey Allergy Anaphylaxis Verified 03/09/25 12:08 bee) (bee sting) Surgical History (Updated 03/09/25 @ 12:16 by Farideh Carmona) Hx of cystoscopy History of colonoscopy History of removal of skin mole History of mandibular surgery Social History Smoking Status: Former smoker Audit: Pertinent Findings Pertinent Findings EKG Perinent findings: 05/12/2024. Normal sinus rhythm 70 bpm normal EKG Echo (EF%) pertinent findings: 12/28/2024. Normal size function EF 65%. Recommendation Anesthesia Recommendation Anesthesia recommendation: OPTIMIZED for anesthesia
[2025-03-14 15:54] LABS: Hematocrit 48.5 % (40-54); Hemoglobin 16.4 g/dL (13.0-16.5); Mean Corp Hgb Conc 33.8 g/dL (32-36); Mean Corpuscular Volume 88.3 fL (80-94); Mean Platelet Vol. 9.9 fl (6.2-12.0); Platelet Count 258 K/mm3 (150-450); RBC Distribution Width CV 13.0 % (11.6-14.6); RBC Distribution Width SD 42.6 fl (35.1-43.9); Red Blood Count 5.49 M/mm3 (4.6-6.2); White Blood Count 7.4 K/mm3 (4.4-11.0)
[2025-03-14 16:43] LABS: Anion Gap 12 (5-15); BUN 17 mg/dL (4-19); BUN/Creat Ratio 16.0 RATIO (10-20); Calcium,Total 8.8 mg/dL (7.6-11.0); Carbon Dioxide 21.0 mmol/L (21.0-32.0); Chloride 103 mmol/L (98-108); Glucose 99 mg/dL (70-99); Potassium 4.3 mmol/L (3.3-5.1)
[2025-03-16] VITALS (8 sets, daily range): BP systolic 119–166; BP diastolic 74–90; PULSE 66–88; RESP 16–18; TEMP 36.1–36.3; O2SAT 93–99; BMI 26.2
--- NOTE | 2025-03-16 07:04 | PCM.HP.STD ---
HPI - General General Chief Complaint: Bladder cancer HPI Narrative JEREMY ADAM, is a 69 M who presents for resection of recurrence of bladder cancer plan to do a transurethral section of bladder tumors PFSH Medical History Wears glasses Marijuana use Alcohol use Arthritis Lung nodule TIA (transient ischemic attack) History of echocardiogram Bladder cancer Wears dentures Cancer Heartburn Former smoker Home Medications ?Medication ?Instructions ?Recorded ?Last Taken ?Type epinephrine 0.3 mg/0.3 mL 0.3 mg (0.3 mL) IM Q4H PRN 04/16/24 Unknown Rx injection, auto-injector (EpiPen anaphylaxis #2 ea 2-Boubacar) tamsulosin 0.4 mg capsule 0.4 mg PO QHS 07/05/24 Unknown History aspirin 81 mg capsule 81 mg PO DAILY 03/09/25 03/09/25 History Allergy/AdvReac Type Severity Reaction Status Date / Time bee venom protein (honey Allergy Anaphylaxis Verified 03/09/25 12:08 bee) (bee sting) Surgical History (Updated 03/09/25 @ 12:16 by Farideh Carmoan) Hx of cystoscopy History of colonoscopy History of removal of skin mole History of mandibular surgery Social History Smoking Status: Former smoker Results Lab / Micro Data 03/14/25 13:21 03/14/25 13:21
[2025-03-16] MEDS: Lactated Ringers 1,000 ML 15 ML IV (10:25)
--- NOTE | 2025-03-16 10:53 | DCINST_ITS ---
Discharge Instructions DC O2, CPAP, BIPAP needs Home O2 Discharge instructions: No Dressing / Incision Discharge Activity: Return to Normal Activity, No Restrictions and May Not Drive (while taking narcotic pain medications.) Dressing / Incision Call your doctor if your incision/area has: Sudden Increased Bleeding Call your doctor if you observe: Fever of 101 or Higher and Uncontrolled pain Follow Up Care Please Follow Up With: Gordo Roe MD When: Call [phone] for an appointment Test Results: Test results from this visit will be discussed in further detail at your follow- up appointment, if applicable. Discharge Plan Admission Primary Reason for Your Visit: Resection of bladder tumors Attending Provider: Gordo Roe Primary Care Provider: Rohan Amezcua Instructions Patient Instructions: Bladder Cancer TUR, Transurethral Bladder Tumor Dc Print Language: Maltese Discharge Orders/Prescriptions Prescriptions: New ibuprofen 600 mg tablet 600 mg PO Q6H PRN (Reason: pain) Qty: 20 0RF ciprofloxacin HCl 500 mg tablet 500 mg PO BID Qty: 10 0RF Continued tamsulosin 0.4 mg capsule 0.4 mg PO QHS epinephrine [EpiPen 2-Boubacar] 0.3 mg/0.3 mL auto-injector 0.3 mg IM Q4H PRN (Reason: anaphylaxis) Qty: 2 0RF Rx Instructions: If you ever have a severe allergic reaction again. Held aspirin 81 mg capsule 81 mg PO DAILY Hold Instructions: Resume on 03/30/25. Referrals / Follow Up: Rohan Amezcua DO [Primary Care Provider] - Disposition Disposition (needs filled in before D/C Order can be placed): Home, Self Care
--- NOTE | 2025-03-16 10:53 | PCM.PRE.AN2 ---
ASA Classification* ASA Classification ASA Classification: 2 Assessment & Plan Anesthesia* Anesthesia Assessment Anesthesia Assessment: Discussed sedation and/or anesthesia options, risks, benefits, and alternatives with patient/parents/legal guardian/POA. Questions invited. The patient/parents/legal guardian/POA seems to understand and agrees to proceed with anesthesia plan. Reviewed the physical assessment, medical history, allergy history and patient home medications list prior to surgery/procedure/anesthetic and documented any changes. Performed airway and anesthesia risk assessments. Anesthesia Type Anesthesia Type: General History Source History Obtained from:: Patient and Chart Anesthesia Focused Assessment* Temperature: 97.3 F Pulse Rate: 88 Blood Pressure: 119/74 Respiratory Rate: 18 Pulse Ox: 93 Oxygen Delivery Method: Room Air Airway Assessment Mouth opens: >3 cm Mallampati Score: II Teeth Condition: Dentures (Patient has full upper and lower dentures.) Neck Range of motion (ROM): Full ROM Labs Anesthesia Preop lab: CBC WBC 7.4 K/mm3 (4.4-11.0) 03/14/25 13:21 03/14/25 RBC 5.49 M/mm3 (4.6-6.2) 03/14/25 13:21 03/14/25 Hgb 16.4 g/dL (13.0-16.5) 03/14/25 13:21 03/14/25 Hct 48.5 % (40-54) 03/14/25 13:21 03/14/25 Plt Count 258 K/mm3 (150-450) 03/14/25 13:21 03/14/25 CHEMISTRY Potassium 4.3 mmol/L (3.3-5.1) 03/14/25 13:21 03/14/25 Sodium 136 mmol/L (133-145) 03/14/25 13:21 03/14/25 Magnesium 2.0 mg/dL (1.6-2.6) 07/07/24 06:45 07/07/24 Phosphorus 2.5 mg/dL (2.5-4.9) 07/07/24 06:45 07/07/24 BUN 17 mg/dL (4-19) 03/14/25 13:21 03/14/25 Creatinine 1.04 mg/dL (0.70-1.20) 03/14/25 13:21 03/14/25 Glucose 99 mg/dL (70-99) 03/14/25 13:21 03/14/25 POC Glucose 123 mg/dL (74-106) H 04/16/24 17:34 04/16/24 COAG Pre-Assessment Diagnosis/Proposed Procedure Planned Operative Procedure(s): TURBT WITH MITOMYCIN C Anesthesia History 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 When Was Last Pacemaker Check QUESTION #4 FULL TEXT: You/Your Family Experience fever (hyperthermia) with Anesthesia Last Oral Intake Last Oral intake: Last Oral Intake NPO since 23:30 03/16/25 10:10 Meds taken in AM with sips of No 03/16/25 10:10 water? 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 Female No 03/09/25 12:10 HX of Motion Sickness No 03/09/25 12:10 HX of N/V After Surgery No 03/09/25 12:10 Non-Smoker Yes 03/09/25 12:10 Duration of Surgery greater Yes 03/09/25 12:10 than 60 minutes Number of Risk Factors 2 03/09/25 12:10 PONV Score Moderate Risk 03/09/25 12:10 Height & Weight Height & Weight: Anesthesia: Height & Weight Height 5 ft 7 in 03/16/25 10:10 Weight: 75.8 kg 03/16/25 10:10 Body Mass Index (BMI) 26.2 03/16/25 10:10 Respiratory Assessment Respiratory Assessment - post hole digging machine operator: Respiratory Tract Infection Hx - post hole digging machine operator Hx Respiratory Tract Infection No 03/09/25 12:10 STOP Sleep Apnea STOP Sleep Apnea - post hole digging machine operator: STOP Sleep Apnea - post hole digging machine operator Hx Hypertension No 03/09/25 12:10 Hx Sleep Apnea No 03/09/25 12:10 CPAP BIPAP Do you snore loudly (louder Yes 03/09/25 12:10 than talking or can be heard Do you often feel tired/ No 03/09/25 12:10 fatigued/ sleepy during daytime? Has anyone observed you stop No 03/09/25 12:10 breathing during sleep? STOP Results Negative 03/09/25 12:10 QUESTION #5 FULL TEXT : Do you snore loudly (louder than talking or can be heard through closed doors)? 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 Specify any problems Hx of Preganancy in last 3 N/A 03/09/25 12:10 Months Nurse Filling Out Transfusion DSCHRIBER 03/09/25 12:10 & Questions: Date: 03/09/25 03/09/25 12:10 Time: 12:11 03/09/25 12:10 Patient unable to answer at this time (ie. confused, unrespo /Reproduction History /Reproductive History - post hole digging machine operator: /Reproductive Hx- post hole digging machine operator Hx Now No 03/09/25 12:10 Gestational Age (in weeks): EDC: Hx Hx Para Hx Section SAB No 03/09/25 12:10 Active Medications Active Medications: Current Medications Generic Name Dose Route Start Last Admin Trade Name Freq PRN Reason Stop Dose Admin Cefazolin Sodium 2 gm/ Sodium 110 mls @ 200 mls/hr 03/16/25 11:40 Chloride IV 03/16/25 12:12 INTRAOP ONE Mitomycin 40 mg/ N/A 40 mls @ 2,400 mls/hr 03/16/25 11:40 INSTILLAT 03/16/25 11:41 X1 ONE Lactated Ringer's 1,000 mls @ 15 mls/hr 03/16/25 10:00 03/16/25 10:25 IV 15 mls/hr .Q48H JO Administration PFSH Medical History Wears glasses Marijuana use Alcohol use Arthritis Lung nodule TIA (transient ischemic attack) History of echocardiogram Bladder cancer Wears dentures Cancer Heartburn Former smoker Home Medications ?Medication ?Instructions ?Recorded ?Last Taken ?Type epinephrine 0.3 mg/0.3 mL 0.3 mg (0.3 mL) IM Q4H PRN 04/16/24 Unknown Rx injection, auto-injector (EpiPen anaphylaxis #2 ea 2-Boubacar) tamsulosin 0.4 mg capsule 0.4 mg PO QHS 07/05/24 03/15/25 History aspirin 81 mg capsule 81 mg PO DAILY 03/09/25 03/09/25 History Held on 03/16/25. Instructions: Resume on 03/30/25. ciprofloxacin HCl 500 mg tablet 500 mg PO BID #10 tabs 03/16/25 Unknown Rx ibuprofen 600 mg tablet 600 mg PO Q6H PRN pain #20 tabs 03/16/25 Unknown Rx Allergy/AdvReac Type Severity Reaction Status Date / Time bee venom protein (honey Allergy Anaphylaxis Verified 03/16/25 10:08 bee) (bee sting) Surgical History Hx of cystoscopy History of colonoscopy History of removal of skin mole History of mandibular surgery Social History Smoking Status: Former smoker Review of Systems (Anesthesia) ROS Narrative System reviewed and no additional complaints, except as documented.
--- NOTE | 2025-03-16 11:39 | PCM.OPRPT ---
Operative Report (Standard) Operative Information Date of Procedure: 03/16/25 Pre-Operative Diagnosis: Bladder tumor 1 cm Post-Operative Diagnosis: The same Surgery/Procedure Performed: Transurethral resection of a small bladder tumor broke beater operator: No Type of Anesthesia: General RN Documented Start/Stop Times: Operation Date: 03/16/25 11:40 Case Time Into Pre-Op 03/16/25 10:00 Anesthesia Start 03/16/25 11:18 Into Room 03/16/25 11:18 Out of Pre-Op 03/16/25 11:18 Procedure Start 03/16/25 11:29 Procedure Start Time: 11:29 Procedure Stop Time: 11:40 Select all DRAINS/GRAFTS/IMPLANTS that apply: None and Drains Drain details: none Estimated Blood Loss: None Specimen collected: No Description of surgery: This is a 69-year-old male who has a history of bladder cancer was treated with resection and he did undergo BCG therapy but partial treatment 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 After cauterizing tumor completely inspected the rest of the bladder with bluelight white light cystoscopy no other visible tumors were seen the bladder was drained I then put a catheter in the bladder put Mitomycin-C into the bladder and the catheter was removed taken back to the PACU in good condition follow-up in a few weeks to go over the results of surgery provide will continue with surveillance after this. Surgical Findings: Tumor in the dome of the bladder was cauterized completely Complications Complications: No Admit VTE Documentation VTE Present on Admission: No VTE Mechan Device Prophylaxis: SCD's VTE Pharm Prophylaxis ordered?: No
--- NOTE | 2025-03-16 11:53 | PCM.POST.ANE ---
Anesthesia: Postop Eval I Current Vital Signs Temperature: 97.2 F Pulse Rate: 70 Blood Pressure: 154/80 Respiratory Rate: 16 Pulse Ox: 99 Oxygen Delivery Method: Room Air Assessment Airway patent: Yes Spontaneous unlabored respirations: Yes Mental status: Awake and Calm nausea: No Vomiting: No Anesthesia Complication: No Fluid Hydration Crystalloid volume administer (ml): 400 Total IV fluid infused: 400 Progress Note Anesthesia document: Postop Eval 1 completed: Yes
--- NOTE | 2025-03-16 14:18 | POSTOPAN2_ITS ---
Anesthesia Postop Eval I Sum Postop Eval Completion status Anesthesia document: Postop Eval 1 completed: Yes Anesthesia Postop Eval I Summary Anesthesia Postop Eval I Summary: Anesthesia Postop Eval I: Assessment Summary Airway patent Yes 03/16/25 11:54 CHIEF OPERATING OFFICER.NORBERTOBAlen Spontaneous unlabored Yes 03/16/25 11:54 CHIEF OPERATING OFFICER.TYLER respirations Mental status Awake,Calm 03/16/25 11:54 CHIEF OPERATING OFFICER.TYLER nausea No 03/16/25 11:54 CHIEF OPERATING OFFICER.TYLER Vomiting No 03/16/25 11:54 CHIEF OPERATING OFFICER.TYLER Anesthesia Postop Eval I: Fluid Summary Crystalloid volume administer 400 03/16/25 11:54 CHIEF OPERATING OFFICER.TYLER (ml) Colloids volume administered ( ml) Blood Product volume administered (ml) Total IV fluid infused 400 03/16/25 11:54 CHIEF OPERATING OFFICER.TYLER Anesthesia Postop Eval I: Summary Notes Anesthesia Complication No 03/16/25 11:54 CHIEF OPERATING OFFICER.TYLER Anesthesia Complication Comment: Post-operative progress note Anesthesia: Postop Eval II Evaluation Mental status: Awake and Calm Pain Level: 0 nausea: No Vomiting: No Complications Anesthesia Complication: No
--- NOTE | 2025-03-16 14:18 | PCM.POSTANE2 ---
Anesthesia Postop Eval I Sum Postop Eval Completion status Anesthesia document: Postop Eval 1 completed: Yes Anesthesia Postop Eval I Summary Anesthesia Postop Eval I Summary: Anesthesia Postop Eval I: Assessment Summary Airway patent Yes 03/16/25 11:54 NOZZLE OPERATOR.NORBERTOBAlen Spontaneous unlabored Yes 03/16/25 11:54 NOZZLE OPERATOR.TYLER respirations Mental status Awake,Calm 03/16/25 11:54 NOZZLE OPERATOR.TYLER nausea No 03/16/25 11:54 NOZZLE OPERATOR.TYLER Vomiting No 03/16/25 11:54 NOZZLE OPERATOR.TYLER Anesthesia Postop Eval I: Fluid Summary Crystalloid volume administer 400 03/16/25 11:54 NOZZLE OPERATOR.TYLER (ml) Colloids volume administered ( ml) Blood Product volume administered (ml) Total IV fluid infused 400 03/16/25 11:54 NOZZLE OPERATOR.TYLER Anesthesia Postop Eval I: Summary Notes Anesthesia Complication No 03/16/25 11:54 NOZZLE OPERATOR.TYLER Anesthesia Complication Comment: Post-operative progress note Anesthesia: Postop Eval II Evaluation Mental status: Awake and Calm Pain Level: 0 nausea: No Vomiting: No Complications Anesthesia Complication: No
== END 2025-03-16 12:59 | disposition home or self-care (01) ==
LOC: SDC 09:44 → AC 09:46
PROVIDERS: Anesthesiology; PCP Family Medicine; Referring Provider Urology; Visit Provider Urology
PROC: 0T5B8ZZ Destruction of Bladder, Via Natural or Artificial Opening Endoscopic (ICD-10-PCS; CPT 51720; principal; 2025-03-16 11:25)
DX: C67.1 Malignant neoplasm of dome of bladder (principal); Z87.891 Personal history of nicotine dependence; Z79.82 Long term (current) use of aspirin; Z79.899 Other long term (current) drug therapy
CPT/HCPCS: 52234; 00912; 36415; 80048; 85027; J9280; J2405

== ENCOUNTER → 2025-03-27 | Outpatient (CLI) | payer OTHER, SELFPAY ==
--- NOTE | 2025-03-27 10:30 | PET_ITS ---
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 TECHNIQUE: Following the intravenous administration of radionucleotide, image acquisition on a dedicated PET/CT unit was performed at one hour post injection. A preliminary CT study encompassing the Skull base, neck, chest, abdomen, pelvis, and proximal thighs was performed for purposes of attenuation correction and anatomic localization. The proximal thighs were also included. The patient's blood glucose level was mg/dL (allowable range: 50-180 mg/dL). RADIOPHARMACEUTICAL: mCi 18F-FDG (Fluorodeoxyglucose F18) IV was injected into he patient. RADIATION DOSE SUMMARY: Effective Dose: Approximately 7 mSv for a standard whole-body PET scan Organ Doses: Varies by organ, with higher doses typically to the bladder, liver, and brain COMPARISON: COMPARISON FROM CT, PET OR OTHER PERTINENT EXAMS: Chest CT 02/27/2025. FINDINGS: Physiologic uptake: There may be expected metabolic uptake within the brain, tongue and floor of the mouth and larynx/vocal cords, heart, shelbie (many normal individuals have hilar uptake in less than 3 nodes with mildly avid hilar nodes less than 2.7 SUV), liver and spleen, system, and GI tract and symmetric muscle uptake. FDG AVID AND NON-AVID LESIONS. Reported avid SUV values (g/mL*) are maximum SUV. NECK: There are no significant neck abnormalities. CHEST: Chest wall- There are no significant chest wall abnormalities. Axilla- There are no significant axillary abnormalities. Lung parenchyma-no hypermetabolism is seen anywhere in the lung sandhu. Mediastinum- There are no significant hilar or mediastinal adenopathy. Pleura- There are no significant pleural abnormalities. ABDOMEN: Stomach- No significant abnormalities. Liver- No significant abnormalities. Spleen- No significant abnormalities. Pancrease- No significant abnormalities. Kidneys- No significant abnormalities. Bowel- Normal bowel activity. Spine- No significant abnormalities. [id number] aortic calcification; no evidence of abdominal aortic aneurysm. PELVIS: Bowel- Normal physiologic bowel activity is identified. Masses- There are no pelvic masses. Mild sigmoid and descending colon diverticulosis. Bones- Degenerative changes of the spine are noted. With the use of bone window settings, there are no osteolytic or osteoblastic lesions. There are no FDG avid lesions within the visualized portion of the axial skeleton. PET/PET/CT Tumor Base -Thigh Init IMPRESSION: FDG avid- No significant avid lesions. Other: Mild sigmoid and descending colon diverticulosis. Degenerative changes of the spine. Please note the low-dose CT scan was performed to facilitate PET image reconstr uction and anatomic localization and does not replace a diagnostic CT. Any diagnostic CT requested and performed at the time of the PET will be reported separately. Reading Location: [place] [id number]
== END | disposition home or self-care (01) ==
LOC: ONC 10:25
PROVIDERS: PCP Family Medicine; Referring Provider Family Medicine; Visit Provider Family Medicine
DX: R91.1 Solitary pulmonary nodule (principal); C67.9 Malignant neoplasm of bladder, unspecified; Z87.891 Personal history of nicotine dependence
CPT/HCPCS: 78815; A9552